=== PATIENT | female | born 1950 | race American Indian/Alaskan Native ===

== ENCOUNTER 2020-10-29 03:54 | Inpatient (IN) | payer MEDICARE ==
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
[2020-10-29] MEDS ORDERED: MIDAZOLAM 5 MG/5 ML INJ MDV IV ONE (04:02)
[2020-10-29] MEDS ORDERED: TETANUS,DIPH,PERTUSS(ACELL) VACCINE 0.5 ML SYRINGE IM ONE (04:04)
[2020-10-29 05:14] LABS: Basophils # (Auto) 0.1 K/mm3 (0.0-0.1); Basophils % (Auto) 0.7 % (0.0-1.8); Eosinophils # (Auto) 0.2 K/mm3 (0.0-0.4); Eosinophils % (Auto) 2.5 % (0.0-4.3); Hematocrit 37.1 % (30.3-42.9); Hemoglobin 12.6 gm/dl (10.1-14.3); Lymphocytes # (Auto) 2.1 K/mm3 (1.2-5.4); Lymphocytes % (Auto) 21.8 % (13.4-35.0); Mean Corpuscular HGB Conc 34 % (30-34); Mean Corpuscular Volume 95 fl (79-97); Monocytes # (Auto) 1.2 K/mm3 (0.0-0.8); Platelet Count 295 K/mm3 (140-440); Red Blood Count 3.92 M/mm3 (3.65-5.03); Red Cell Distribution Width 15.1 % (13.2-15.2)
--- NOTE | 2020-10-29 05:22 | XRay Report ---
Left elbow 2 views INDICATION: Pain FINDINGS: Alignment appears normal. No joint effusion is definitely seen. No acute fracture. Signer Name: Jorge Rivers MD Signed: 10/29/2020 5:18 AM Workstation Name: [id number]
--- NOTE | 2020-10-29 05:22 | XRay Report ---
CHEST 1 VIEW 10/29/2020 4:15 AM INDICATION / CLINICAL INFORMATION: dyspnea congestion. COMPARISON: None available. FINDINGS: SUPPORT DEVICES: None. HEART / MEDIASTINUM: No significant abnormality. LUNGS / PLEURA: No significant pulmonary or pleural abnormality. No pneumothorax. ADDITIONAL FINDINGS: No significant additional findings. IMPRESSION: 1. No acute findings. Signer Name: Jorge Rivers MD Signed: 10/29/2020 5:18 AM Workstation Name: [id number]
[2020-10-29] MEDS ORDERED: HALOPERIDOL LACTATE 5 MG/1 ML INJ IM STA (05:30)
[2020-10-29 05:31] LABS: Alanine Aminotransferase 31 units/L (7-56); Albumin 4.1 g/dL (3.9-5); BUN/Creatinine Ratio 16; Blood Urea Nitrogen 16 mg/dL (7-17); Calcium 9.3 mg/dL (8.4-10.2); Hemolysis Index 63
[2020-10-29] MEDS ORDERED: SODIUM CHLORIDE 0.9% 500 ML 500 ML IV ONE (05:32)
[2020-10-29] MEDS ORDERED: MAGNESIUM SULFATE 2 GM/50 ML BAG IV ONE (05:53)
[2020-10-29] MEDS ORDERED: LORazepam 2 MG/ML VIAL IV ONE (07:08)
[2020-10-29] MEDS: ZIPRASIDONE MESYLATE 20 MG VIAL IM PRN ×2 (08:38→10:15)
--- NOTE | 2020-10-29 11:17 | Cat Scan Report ---
NONENHANCED CT SCAN OF THE HEAD: INDICATION / CLINICAL INFORMATION: 70 years Female; Patient fell with trauma to her head. TECHNIQUE: Routine CT head without contrast. All CT scans at this location are performed using CT dos e reduction for ALARA by means of automated exposure control. COMPARISON: CT scan of the head from 02/10/2020 FINDINGS: BRAIN / INTRACRANIAL CONTENTS: No intracranial sequela from the trauma; no scalp hematoma; no fluid l evel in the visualized portions of the paranasal sinuses. No acute hemorrhage, mass effect, midline shift, hydrocephalus, or acute, large territorial infarct. No chronic infarct or focal atrophy. Confluent periventricular and deep hemispheric white matter low attenuation areas seen probably due to chronic small vessel disease. CRANIOCERVICAL JUNCTION: No significant abnormality. ORBITS: No significant abnormality of visualized orbits. SINUSES / MASTOIDS: No significant abnormality of the visualized paranasal sinuses or mastoid air isabelle ls. ADDITIONAL FINDINGS: None. IMPRESSION: No intracranial sequela from the trauma; no acute focal parenchymal lesion Signer Name: Byron Mccain MD Signed: 10/29/2020 11:13 AM Workstation Name: [email or web address] [email or web address]
--- NOTE | 2020-10-29 11:27 | Cat Scan Report ---
CTA CHEST WITH CONTRAST INDICATION / CLINICAL INFORMATION: Patient complains of "Generalized" abdominal pain 100 ml omni 350 . TECHNIQUE: Axial CT images were obtained through the chest after injection of IV contrast. 3 plane TX P and/or 3D reconstructions were produced. All CT scans at this location are performed using CT dose reduction for ALARA by means of automated exposure control. COMPARISON: CTA from 09/04/2020. FINDINGS: Thoracic aorta is normal in caliber. No dissection. No central or segmental pulmonary embolus. Mild c ardiac enlargement without pericardial effusion. Right chest wall port terminates at the cavoatrial j unction. No adenopathy. Scattered volume loss. No focal infiltrate. No pleural effusion or pneumothor ax. No acute osseous findings. Extensive thoracic hardware is unchanged. IMPRESSION: No acute findings in the chest. No evidence of pulmonary embolus. CT abdomen pelvis w con INDICATION / CLINICAL INFORMATION: Patient complains of "Generalized" abdominal pain 100 ml omni 350 . TECHNIQUE: Axial CT images were obtained through the abdomen and pelvis after IV contrast. All CT sc ans at this location are performed using CT dose reduction for ALARA by means of automated exposure c ontrol. COMPARISON: 09/02/2020. FINDINGS: Cholecystomy with reservoir phenomenon of the biliary tree. Liver, pancreas, spleen, adrenals, kidney s and bladder demonstrate no acute abnormality. Hysterectomy. Stomach is unremarkable. Small bowel and colon demonstrate no evidence of mechanical obstruction or i nflammation. The appendix is not seen. There is no free fluid or lymphadenopathy. IVC filter is again seen within the infrarenal IVC, unchanged. Chronic and extensive postoperative changes of the lumbar spine and pelvis are similar. No acute osseous finding. IMPRESSION: No acute abnormality of the abdomen or pelvis. Signer Name: Sammy Wall MD Signed: 10/29/2020 11:23 AM Workstation Name: [email or web address]
[2020-10-29] MEDS ORDERED: SODIUM CHLORIDE 0.9% 1000 ML 1,000 ML IV ONE (11:42)
--- NOTE | 2020-10-29 11:53 | History and Physical Report ---
History of Present Illness Chief complaint: She is confused History of present illness: 70 YO Female with Vascular Dementia with Behavioral Disturbance, Cerebral Atherosclerosis, COPD, DM, Paroxysmal Atrial Fib not on therapeutic anticoagulation, Diastolic CHF, BrCA, GERD, HTN, Scoliosis presents to ED for evaluation. Patient is confused with diminished cognition and is unable to provide history. Patient history taken from EMS staff, ED staff, as well as patient previous medical record. As per staff and unknown individual notified EMS this morning for patient confusion. Upon arrival the patient was found to be in distress and subsequently transported to [facility] for further care and evaluation of the aforementioned symptoms. The patient was seen and evaluated in the emergency department. All lab and imaging studies reviewed. The patient is currently bedbound, nonambulatory and requires 6/6 assistance with activities of daily living. Patient has a palliative performance score 30%. Patient is unable to make needs known or follow simple commands. Patient found to have metabolic encephalopathy, metabolic acidosis, tachycardia not otherwise specified. Patient placed in observation status and admitted to medical floor due to increased risk of worsening symptoms. Patient treated with IV fluid resuscitation therapy, supportive care. Patient is confused and lethargic but has a positive gag reflex and is able to protect her airway without difficulty. No further history is obtainable. Advanced care planning conducted in ED. Case management consulted in ED. Past History Past Medical History: atrial fib, cancer, COPD, diabetes, GERD, heart failure, hypertension Past Surgical History: No surgical history, Other (Reviewed) Social history: single. denies: smoking, alcohol abuse Family history: diabetes, hypertension Medications and Allergies Allergies Allergy/AdvReac Type Severity Reaction Status Date / Time No Known Allergies Allergy Verified 10/29/20 04:34 Active Meds: Active Medications Sodium Chloride (Nacl 0.9% 1000 Ml) 1,000 mls @ 999 mls/hr IV BOLUS ONE Stop: 10/29/20 12:42 Ziprasidone (Ziprasidone Mesylate 20 Mg Vial) 10 mg IM Q2H PRN PRN Reason: Agitation Last Admin: 10/29/20 10:15 Dose: 10 mg Documented by: Review of Systems ROS unobtainable: due to mental status Exam - Constitutional Vitals: Temp Pulse Resp BP Pulse Ox 97.9 F 133 H 13 145/64 92 10/29/20 04:28 10/29/20 04:28 10/29/20 04:28 10/29/20 04:28 10/29/20 04:28 General appearance: Present: mild distress, cachectic, disheveled - EENT Eyes: Present: PERRL ENT: clear oral mucosa, hearing decreased - Neck Neck: Present: supple, normal ROM - Respiratory Respiratory: bilateral: CTA - Cardiovascular Rhythm: irregularly irregular - Extremities Extremities: pulses symmetrical, No edema Peripheral Pulses: within normal limits - Abdominal General gastrointestinal: Present: soft, non-tender, non-distended, normal bowel sounds Female genitourinary: Present: normal - Integumentary Integumentary: Present: clear, dry - Musculoskeletal Musculoskeletal: generalized weakness - Psychiatric Psychiatric: no appropriate mood/affect, no intact judgment & insight, no memory intact - Neurologic Neurologic: CNII-XII intact, no focal deficits, moves all extremities, no gait normal HEART Score - HEART Score Troponin: Troponin T 0.018 ng/mL (0.00-0.029) 10/29/20 04:25 Results - Labs CBC & Chem 7: 10/29/20 04:25 10/29/20 04:25 Labs: Abnormal lab results 10/29/20 10/29/20 10/29/20 Range/Units 04:25 04:25 04:25 [place] % (Auto) 13.0 H (0.0-7.3) % [place] # (Auto) 1.2 H (0.0-0.8) K/mm3 D-Dimer (0-234) ng/mlDDU Chloride 94.4 L (98-107) mmol/L Glucose 219 H (65-100) mg/dL Lactic Acid (0.7-2.0) mmol/L Magnesium 1.20 L (1.7-2.3) mg/dL Alkaline Phosphatase 138 H (35-129) units/L Total Creatine Kinase 454 H (30-135) units/L Total Protein 6.2 L (6.3-8.2) g/dL Salicylates < 0.3 L (2.8-20.0) mg/dL Acetaminophen (10.0-30.0) ug/mL 10/29/20 10/29/20 10/29/20 Range/Units 04:25 05:41 05:41 [place] % (Auto) (0.0-7.3) % [place] # (Auto) (0.0-0.8) K/mm3 D-Dimer 1275.25 H (0-234) ng/mlDDU Chloride (98-107) mmol/L Glucose (65-100) mg/dL Lactic Acid 2.70 H* (0.7-2.0) mmol/L Magnesium (1.7-2.3) mg/dL Alkaline Phosphatase (35-129) units/L Total Creatine Kinase (30-135) units/L Total Protein (6.3-8.2) g/dL Salicylates (2.8-20.0) mg/dL Acetaminophen < 5.0 L (10.0-30.0) ug/mL Assessment and Plan - Patient Problems (1) Metabolic encephalopathy Current Visit: Yes Status: Acute Plan to address problem: CT head, neuro check, seizure precautions, aspiration precautions, fall precautions, IV fluid resuscitation therapy (2) Metabolic acidosis Current Visit: Yes Status: Acute Plan to address problem: BMP, IV fluid resuscitation therapy, repeat BMP in a.m. (3) Vascular dementia with behavioral disturbance Current Visit: Yes Status: Acute Plan to address problem: Verbal prompting, verbal redirection, benzodiazepine therapy as clinically indicated. (4) Cerebral atherosclerosis Current Visit: Yes Status: Acute Plan to address problem: Risk factor reduction, supportive care, antiplatelet therapy as clinically indicated. (5) Hypertension Current Visit: Yes Status: Acute Qualifiers: Hypertension type: essential hypertension Qualified Code(s): I10 - Essential (primary) hypertension Plan to address problem: Monitor blood pressure every shift, continue medical management (6) GERD (gastroesophageal reflux disease) Current Visit: Yes Status: Acute Qualifiers: Esophagitis bleeding: without hemorrhage Plan to address problem: PPI therapy, supportive care. (7) Atrial fibrillation Current Visit: Yes Status: Acute Qualifiers: Atrial fibrillation type: longstanding persistent Qualified Code(s): I48.11 - Longstanding persistent atrial fibrillation Plan to address problem: Supportive care, rate control, patient currently not taking therapeutic anticoagulation, (8) DVT prophylaxis Current Visit: Yes Status: Acute Plan to address problem: SCD to bilateral lower extremities while in bed (9) Advance care planning Current Visit: Yes Status: Acute Plan to address problem: Patient son Graeme Rawls is not available to discuss patient care patient phone number is as follows: [phone]. [phone] minutes.
[2020-10-29] MEDS ORDERED: ALBUTEROL 2.5 MG/3 ML NEBU IH PRN (13:00)
[2020-10-29] MEDS ORDERED: ONDANSETRON 4 MG/2 ML INJ IV PRN (14:00)
--- NOTE | 2020-10-29 14:25 | Electrocardiograph Report ---
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
[2020-10-29 15:24] LABS: Bilirubin,Urine NEG (Negative); Blood,Urine NEG (Negative); Color,Urine Yellow (Yellow); Hyaline Casts,Urine 1 /LPF; Protein,Urine <15 mg/dL mg/dL (Negative); Urobilinogen,Urine < 2.0 mg/dL (<2.0)
[2020-10-29] MEDS: SODIUM CHLORIDE 0.9% 1000 ML 1,000 ML IV SCH ×2 (19:02→22:29)
[2020-10-29] MEDS: METOPROLOL SUCCINATE XL 50 MG TAB PO SCH (22:29)
[2020-10-29] MEDS: LORazepam 2 MG/ML VIAL IV PRN (23:41)
[2020-10-30] MEDS ORDERED: METOPROLOL TARTRATE 5 MG/5 ML INJ IV ONE (00:05)
[2020-10-30] MEDS ORDERED: LEVALBUTEROL 1.25 MG/3 ML NEB IH ONE (00:07)
[2020-10-30] MEDS ORDERED: methylPREDNISolone Sod Succinate 125 MG/2 ML INJ ONE (00:19)
[2020-10-30] MEDS ORDERED: methylPREDNISolone Sod Succinate 125 MG/2 ML INJ IV ONE (00:23)
[2020-10-30] MEDS: ENOXAPARIN 40 MG/0.4 ML INJ SUB-Q SCH ×2 (00:35→23:13)
--- NOTE | 2020-10-30 01:07 | Event Note ---
Date: 10/30/20 Rapid response called at approximately 0020 for respiratory distress concerned. Patient was tachypneic with respiratory rate in mid to high 30s, saturation of 96% on 3 L nasal cannula, telemetry monitoring showed atrial fibrillation with heart rate ranging from 1 20-140s. Stat EKG confirmed atrial fibrillation, patient has history of paroxysmal atrial fibrillation and is rate controlled on metoprolol. IV metoprolol 2.5 mg given, and patient was responsive with heart rate 110-118; stat ABG 7.399/41.99/82.3/25.3; given patient's history of COPD and on auscultation prolonged expiratory phase IV Solu-Medrol 125 mg given, neb treatment ordered, and will place on nocturnal use of BiPAP.
[2020-10-30 02:10] LABS: C-Reactive Protein 10.1 mg/dL (0.00-1.30)
[2020-10-30] MEDS: LORazepam 2 MG/ML VIAL IV PRN ×3 (07:27→19:32)
[2020-10-30] MEDS: IPRATROPIUM/ALBUTEROL SULFATE 3 ML AMPUL.NEB IH SCH ×2 (07:34→14:32)
[2020-10-30 08:15] LABS: Blood Urea Nitrogen 12 mg/dL (7-17); Calcium 8.1 mg/dL (8.4-10.2); Hemolysis Index 20
[2020-10-30 08:23] LABS: BUN/Creatinine Ratio 20
--- NOTE | 2020-10-30 09:31 | Progress Note ---
Assessment and Plan Assessment and plan: --h/o Paroxysmal atrial fibrillation with rapid ventricular rate Current Visit: Yes Status: Acute On metoprolol , patient not on anticoagulation Supportive care Cardiology consult --Acute metabolic encephalopathy Current Visit: Yes Status: Acute Multifactorial , dementia .metabolic acidosis .A. fib Treat the underlying cause, will find out from family her baseline status. CT head, no acute abnormality noted --History of fall; Current Visit: Yes Status: Acute. Fall precautions, physical therapy occupational therapy Possible placement when stable --Hyperglycemia/type 2 diabetes mellitus Accu-Chek sliding scale coverage ADA diet Long-acting insulin as needed, check A1c --Metabolic acidosis Current Visit: Yes Status: Acute BMP, IV fluid resuscitation therapy, repeat BMP in a.m. --Vascular dementia with behavioral disturbance Current Visit: Yes Status: Acute Verbal prompting, verbal redirection, benzodiazepine therapy as clinically indicated. -- Hypertension Current Visit: Yes Status: Acute Monitor blood pressure every shift, continue medical management --GERD (gastroesophageal reflux disease) Current Visit: Yes Status: Acute PPI therapy, supportive care. --Multiple decubiti and wounds of different stages Current Visit: Yes Status: Acute Wound and supportive care --DVT prophylaxis Current Visit: Yes Status: Acute SCD to bilateral lower extremities while in bed --discharge planning Current Visit: Yes Status: Acute . Possible placement at discharge --Advance care planning Current Visit: Yes Status: Acute Continue current management I called [place] physician Dr.Del Ott at [phone] and discussed in detail patient's condition, tests and reports, treatment plan, family's request for placement, Consultants recommendations. I answered all her questions, and Dr. Zhang will fax patient's current medication list to the nurses station. History Interval history: I have seen and examined the patient at the bedside Patient's chart and medications reviewed patient was admitted with altered level of consciousness Went into acute respiratory failure requiring BiPAP As well as had an episode of A. fib with rapid ventricular rate Patient is in sinus today On BiPAP noncommunicative Vital signs noted Hospitalist Physical - Constitutional Vitals: Temp Pulse Resp BP Pulse Ox 98.3 F 96 H 20 118/68 100 10/30/20 04:33 10/30/20 07:45 10/30/20 07:45 10/30/20 04:33 10/30/20 07:49 General appearance: Present: mild distress, cachectic, disheveled - EENT Eyes: Present: PERRL, EOM intact - Neck Neck: Present: supple, normal ROM - Respiratory Respiratory effort: normal Respiratory: bilateral: diminished, negative: rales, rhonchi, wheezing - Cardiovascular Rhythm: regular Heart Sounds: Present: S1 & S2 - Extremities Extremities: no ischemia, No edema - Abdominal General gastrointestinal: soft, non-tender, non-distended, normal bowel sounds - Integumentary Integumentary: Present: clear, warm - Psychiatric Psychiatric: other (Confused) - Neurologic Neurologic: moves all extremities HEART Score - HEART Score Troponin: Troponin T 0.018 ng/mL (0.00-0.029) 10/29/20 04:25 Results - Labs CBC & Chem 7: 10/29/20 04:25 10/30/20 07:09 Labs: Laboratory Last Values WBC 9.4 K/mm3 (4.5-11.0) 10/29/20 04:25 RBC 3.92 M/mm3 (3.65-5.03) 10/29/20 04:25 Hgb 12.6 gm/dl (10.1-14.3) 10/29/20 04:25 Hct 37.1 % (30.3-42.9) 10/29/20 04:25 MCV 95 fl (79-97) 10/29/20 04:25 MCH 32 pg (28-32) 10/29/20 04:25 MCHC 34 % (30-34) 10/29/20 04:25 RDW 15.1 % (13.2-15.2) 10/29/20 04:25 Plt Count 295 K/mm3 (140-440) 10/29/20 04:25 Lymph % (Auto) 21.8 % (13.4-35.0) 10/29/20 04:25 [place] % (Auto) 13.0 % (0.0-7.3) H 10/29/20 04:25 Eos % (Auto) 2.5 % (0.0-4.3) 10/29/20 04:25 Baso % (Auto) 0.7 % (0.0-1.8) 10/29/20 04:25 Lymph # (Auto) 2.1 K/mm3 (1.2-5.4) 10/29/20 04:25 [place] # (Auto) 1.2 K/mm3 (0.0-0.8) H 10/29/20 04:25 Eos # (Auto) 0.2 K/mm3 (0.0-0.4) 10/29/20 04:25 Baso # (Auto) 0.1 K/mm3 (0.0-0.1) 10/29/20 04:25 Seg Neutrophils % 62.0 % (40.0-70.0) 10/29/20 04:25 Seg Neutrophils # 5.9 K/mm3 (1.8-7.7) 10/29/20 04:25 D-Dimer 1275.25 ng/mlDDU (0-234) H 10/29/20 05:41 ABG pH 7.399 (7.320-7.450) 10/30/20 00:24 POC ABG pCO2 41.8 mmHg (32.0-48.0) 10/30/20 00:24 POC ABG pO2 82.3 mmHg (83-108) L 10/30/20 00:24 POC ABG HCO3 25.3 10/30/20 00:24 ABG O2 Saturation 96.2 (0-100) 10/30/20 00:24 POC ABG Base Excess 0.4 10/30/20 00:24 ABG Hemoglobin 11.2 (12.0-17.5) L 10/30/20 00:24 ABG Oxyhemoglobin 95.6 (94-98) 10/30/20 00:24 ABG Methemoglobin 0.3 (0.0-1.5) 10/30/20 00:24 ABG Sodium 133.5 mmol/L (136.0-145.0) L 10/30/20 00:24 ABG Potassium 3.1 mmol/L (3.40-4.50) L 10/30/20 00:24 ABG Chloride 99.0 mmol/L (98-107) 10/30/20 00:24 ABG Glucose 179 mg/dL (65-95) H 10/30/20 00:24 Carboxyhemoglobin 0.3 (0.5-1.5) L 10/30/20 00:24 FiO2 % 32.0 10/30/20 00:24 Sodium 139 mmol/L (137-145) 10/30/20 07:09 Potassium 3.6 mmol/L (3.6-5.0) 10/30/20 07:09 Chloride 99.0 mmol/L (98-107) 10/30/20 07:09 Carbon Dioxide 24 mmol/L (22-30) 10/30/20 07:09 Anion Gap 20 mmol/L 10/30/20 07:09 BUN 12 mg/dL (7-17) 10/30/20 07:09 Creatinine 0.6 mg/dL (0.6-1.2) 10/30/20 07:09 Estimated GFR > 60 ml/min 10/30/20 07:09 BUN/Creatinine Ratio 20 % 10/30/20 07:09 Glucose 241 mg/dL (65-100) H 10/30/20 07:09 POC Glucose 249 mg/dL (70-105) H 10/30/20 07:46 Lactic Acid 1.70 mmol/L (0.7-2.0) 10/29/20 10:16 Calcium 8.1 mg/dL (8.4-10.2) L 10/30/20 07:09 Magnesium 1.20 mg/dL (1.7-2.3) L 10/29/20 04:25 Ferritin 466.2 ng/mL (10.0-200.0) H 10/30/20 01:19 Total Bilirubin 1.00 mg/dL (0.1-1.2) 10/29/20 04:25 AST 35 units/L (5-40) 10/29/20 04:25 ALT 31 units/L (7-56) 10/29/20 04:25 Alkaline Phosphatase 138 units/L (35-129) H 10/29/20 04:25 Lactate Dehydrogenase 540 units/L (91-180) H 10/30/20 01:19 Total Creatine Kinase 454 units/L (30-135) H 10/29/20 04:25 Troponin T 0.018 ng/mL (0.00-0.029) 10/29/20 04:25 C-Reactive Protein 10.10 mg/dL (0.00-1.30) H 10/30/20 01:19 NT-Pro-B Natriuret Pep 231.7 pg/mL (0-900) 10/29/20 04:25 Total Protein 6.2 g/dL (6.3-8.2) L 10/29/20 04:25 Albumin 4.1 g/dL (3.9-5) 10/29/20 04:25 Albumin/Globulin Ratio 2.0 % 10/29/20 04:25 Procalcitonin 0.72 ng/mL (<0.15) 10/30/20 01:19 TSH 2.290 mlU/mL (0.270-4.200) 10/29/20 04:25 Arterial Blood Glucose 179 mg/dL (65-95) H 10/30/20 00:24 Arterial Blood Ionized Calcium 4.3 mg/dL (4.6-5.3) L 10/30/20 00:24 Urine Color Yellow (Yellow) 10/29/20 14:53 Urine Turbidity Clear (Clear) 10/29/20 14:53 Urine pH 5.0 (5.0-7.0) 10/29/20 14:53 Ur Specific [place] 1.019 (1.003-1.030) 10/29/20 14:53 Urine Protein <15 mg/dl mg/dL (Negative) 10/29/20 14:53 Urine Glucose (UA) 150 mg/dL (Negative) 10/29/20 14:53 Urine Ketones Neg mg/dL (Negative) 10/29/20 14:53 Urine Blood Neg (Negative) 10/29/20 14:53 Urine Nitrite Neg (Negative) 10/29/20 14:53 Urine Bilirubin Neg (Negative) 10/29/20 14:53 Urine Urobilinogen < 2.0 mg/dL (<2.0) 10/29/20 14:53 Ur Leukocyte Esterase Neg (Negative) 10/29/20 14:53 Urine WBC (Auto) 1.0 /HPF (0.0-6.0) 10/29/20 14:53 Urine RBC (Auto) 1.0 /HPF (0.0-6.0) 10/29/20 14:53 Hyaline Casts 1 /LPF 10/29/20 14:53 Salicylates < 0.3 mg/dL (2.8-20.0) L 10/29/20 04:25 Acetaminophen < 5.0 ug/mL (10.0-30.0) L 10/29/20 04:25 Plasma/Serum Alcohol < 0.01 % (0-0.07) 10/29/20 04:25 [place]/IV: Voiding Method Incontinent Active Medications - Current Medications Current Medications: Generic Name Dose Route Start Last Admin Trade Name Freq PRN Reason Stop Dose Admin Acetaminophen 650 mg 10/29/20 13:00 Acetaminophen 325 Mg Tab PO Q4H PRN Pain MILD(1-3)/Fever >100.5/HOFFMAN Albuterol 2.5 mg 10/29/20 13:00 Albuterol 2.5 Mg/3 Ml Nebu IH Q4HRT PRN Shortness Of Breath Albuterol/Ipratropium 1 ampul 10/30/20 08:00 10/30/20 07:34 Ipratropium/Albuterol Sulfate 3 Ml Ampul.Neb IH 1 ampul TIDRT AGUEDA Administration Enoxaparin Sodium 40 mg 10/30/20 00:30 10/30/20 00:35 Enoxaparin 40 Mg/0.4 Ml Inj SUB-Q 40 mg QDAY@2200 AGUEDA Administration Protocol Sodium Chloride 1,000 mls @ 75 mls/hr 10/29/20 13:00 10/29/20 22:29 Nacl 0.9% 1000 Ml IV Infused DIRECT AGUEDA Infusion Lorazepam 1 mg 10/29/20 12:37 10/30/20 07:27 Lorazepam 2 Mg/Ml Vial IV 1 mg Q4H PRN Administration Agitation Metoprolol Succinate 50 mg 10/29/20 22:00 10/29/20 22:29 Metoprolol Succinate Xl 50 Mg Tab PO 50 mg QDAY AGUEDA Administration Ondansetron HCl 4 mg 10/29/20 14:00 Ondansetron 4 Mg/2 Ml Inj IV Q8H PRN Nausea And Vomiting Sodium Chloride 10 ml 10/29/20 22:00 10/29/20 22:30 Sodium Chloride 0.9% 10 Ml Flush Syringe IV 10 ml BID AGUEDA Administration Sodium Chloride 10 ml 10/29/20 13:00 10/29/20 23:41 Sodium Chloride 0.9% 10 Ml Flush Syringe IV 10 ml PRN PRN Administration LINE FLUSH Ziprasidone 10 mg 10/29/20 08:23 10/29/20 10:15 Ziprasidone Mesylate 20 Mg Vial IM 10 mg Q2H PRN Administration Agitation
--- NOTE | 2020-10-30 10:58 | Consultation ---
History of Present Illness Consult date: 10/30/20 Consult reason: atrial fibrillation History of present illness: This is a 70-year old woman who was brought in with complaints of abdominal pain. CT scan of the abdomen reports no acute findings. Overnight, she developed respiratory failure and was placed on Bipap therapy. CTA of the chest shows no evidence of pulmonary embolism. History is unobtainable due to underlying Dementia. Records reviewed reports she has a cardiac history of paroxysmal atrial fibrillation which is followed by [place]. Home medications lists she takes Pradaxa for oral anticoagulation. An ECG done on presentation shows sinus tachycardia with occasional PACs. 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 A cardiac consultation has been requested for history of paroxysmal atrial fibrillation. Past History Past Medical History: atrial fib, cancer, COPD, diabetes, GERD, heart failure, hypertension Past Surgical History: No surgical history Social history: single. denies: smoking, alcohol abuse Family history: diabetes, hypertension Medications and Allergies Allergies Allergy/AdvReac Type Severity Reaction Status Date / Time No Known Allergies Allergy Verified 10/29/20 04:34 Home Medications Medication Instructions Recorded Confirmed Last Taken Type AtorvaSTATin [Lipitor] 40 mg PO QHS 10/29/20 10/29/20 Unknown History Dabigatran [Pradaxa] 150 mg PO BID 10/29/20 10/29/20 Unknown History Duloxetine HCl 60 mg PO QDAY 10/29/20 10/29/20 Unknown History Hydroxychloroquine [Plaquenil] 200 mg PO QDAY 10/29/20 10/29/20 Unknown History Insulin NPH Human Isophane 0 units SQ ACHS 10/29/20 10/29/20 Unknown History [Humulin N] Metoprolol Xl [Metoprolol 50 mg PO QDAY 10/29/20 10/29/20 Unknown History SUCCINATE ER TAB] Mirtazapine [Remeron 15mg TAB] 15 mg PO QHS 10/29/20 10/29/20 Unknown History Montelukast [Singulair] 10 mg PO QPM 10/29/20 10/29/20 Unknown History Pregabalin [Lyrica] 25 mg PO QDAY 10/29/20 10/29/20 Unknown History Tiotropium Br/Olodaterol HCl 2 puff INHALATION DAILY 10/29/20 10/29/20 Unknown History [Stiolto Respimat Inhal [place]] diazePAM [Diazepam] 10 mg PO QHS 10/29/20 10/29/20 Unknown History Active Meds: Active Medications Acetaminophen (Acetaminophen 325 Mg Tab) 650 mg PO Q4H PRN PRN Reason: Pain MILD(1-3)/Fever >100.5/[place]OFFMAN Albuterol (Albuterol 2.5 Mg/3 Ml Nebu) 2.5 mg IH Q4HRT PRN PRN Reason: Shortness Of Breath Albuterol/Ipratropium (Ipratropium/Albuterol Sulfate 3 Ml Ampul.Neb) 1 ampul IH TIDRT [facility] Last Admin: 10/30/20 07:34 Dose: 1 ampul Documented by: Enoxaparin Sodium (Enoxaparin 40 Mg/0.4 Ml Inj) 40 mg SUB-Q QDAY@2200 [facility]; Protocol Last Admin: 10/30/20 00:35 Dose: 40 mg Documented by: Sodium Chloride (Nacl 0.9% 1000 Ml) 1,000 mls @ 75 mls/hr IV DIRECT [facility] Last Infusion: 10/29/20 22:29 Dose: Infused Documented by: Lorazepam (Lorazepam 2 Mg/Ml Vial) 1 mg IV Q4H PRN PRN Reason: Agitation Last Admin: 10/30/20 07:27 Dose: 1 mg Documented by: Metoprolol Succinate (Metoprolol Succinate Xl 50 Mg Tab) 50 mg PO QDAY [facility] Last Admin: 10/29/20 22:29 Dose: 50 mg Documented by: Ondansetron HCl (Ondansetron 4 Mg/2 Ml Inj) 4 mg IV Q8H PRN PRN Reason: Nausea And Vomiting Sodium Chloride (Sodium Chloride 0.9% 10 Ml Flush Syringe) 10 ml IV BID [facility] Last Admin: 10/30/20 10:20 Dose: Not Given Documented by: Sodium Chloride (Sodium Chloride 0.9% 10 Ml Flush Syringe) 10 ml IV PRN PRN PRN Reason: LINE FLUSH Last Admin: 10/29/20 23:41 Dose: 10 ml Documented by: Ziprasidone (Ziprasidone Mesylate 20 Mg Vial) 10 mg IM Q2H PRN PRN Reason: Agitation Last Admin: 10/29/20 10:15 Dose: 10 mg Documented by: Review of Systems ROS unobtainable: due to mental status Physical Examination Vital Signs Pulse Ox 100 10/29/20 04:18 General appearance: other (on Bipap therapy) Cardiac: Positive: Reg Rate and Rhythm Results 10/29/20 04:25 10/30/20 07:09 Cardiac Enzymes 10/30/20 Range/Units 01:19 Lactate Dehydrogenase 540 H (91-180) units/L Comprehensive Metabolic Panel 10/30/20 10/30/20 Range/Units 01:19 07:09 Sodium 139 (137-145) mmol/L Potassium 3.6 (3.6-5.0) mmol/L Chloride 99.0 (98-107) mmol/L Carbon Dioxide 24 (22-30) mmol/L BUN 12 (7-17) mg/dL Creatinine 0.6 (0.6-1.2) mg/dL Glucose 187 H 241 H (65-100) mg/dL Calcium 8.1 L (8.4-10.2) mg/dL Assessment and Plan - Patient Problems (1) Atrial fibrillation Current Visit: Yes Status: Acute Qualifiers: Qualified Code(s): I48.11 - Longstanding persistent atrial fibrillation Plan to address problem: Hx of paroxysmal atrial fibrillation on Pradaxa as an outpatient for oral AC. on Toprol XL for suppression. Continue medical therapy for paroxysmal atrial fibrillation. Otherwise, conservative cardiac management.
[2020-10-30] MEDS: METOPROLOL SUCCINATE XL 50 MG TAB PO SCH (12:18)
--- NOTE | 2020-10-30 15:17 | Event Note ---
Date: 10/30/20 I called [place] physician Dr.Del Ott at [phone] and discussed in detail patient's condition, tests and reports, treatment plan, family's request for placement, Consultants recommendations. I answered all her questions, and Dr. Zhang will fax patient's current medication list to the nurses station.
--- NOTE | 2020-10-30 18:10 | Electrocardiograph Report ---
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
[2020-10-31] MEDS: INSULIN LISPRO 100 UNIT/ML SUB-Q SCH ×5 (00:13→22:27)
[2020-10-31] MEDS: IPRATROPIUM/ALBUTEROL SULFATE 3 ML AMPUL.NEB IH SCH ×4 (09:22→20:18)
--- NOTE | 2020-10-31 10:39 | Progress Note ---
Assessment and Plan Respiratory failure Sinus tachycardia related to respiratory failure Hx of paroxysmal atrial fibrillation on Pradaxa as an outpatient for oral AC. on Toprol XL for suppression. Htn DM II Vascular dementia Recommend: Continue medical therapy for paroxysmal atrial fibrillation. Otherwise, conservative cardiac management. Subjective Date of service: 10/31/20 Interval history: No acute events Objective Vital Signs Temp Pulse Pulse Pulse Resp Resp Resp 10/31/20 09:20 120 H 119 H 20 15 10/31/20 05:59 98.1 F 20 10/30/20 23:00 100 H 28 H 10/30/20 22:04 98.4 F 120 H 20 10/30/20 15:32 99.1 F 115 H 36 H 10/30/20 14:38 102 H 26 H 10/30/20 14:37 99 H 102 H 20 10/30/20 11:42 99.0 F 117 H 36 H BP Pulse Ox 10/31/20 09:20 10/31/20 05:59 126/65 10/30/20 23:00 100 10/30/20 22:04 124/76 98 10/30/20 15:32 135/68 100 10/30/20 14:38 100 10/30/20 14:37 10/30/20 11:42 132/74 100 - Physical Examination Cardiac: Positive: Reg Rate and Rhythm Lungs: Positive: clear to auscultation Abdomen: Positive: Soft, Active Bowel Sounds
--- NOTE | 2020-10-31 11:19 | Progress Note ---
Assessment and Plan Assessment and Plan: -l atrial fibrillation with rapid ventricular rate Current Visit: Yes Status: Acute On metoprolol , patient not on anticoagulation Supportive care Cardiology consult Add Cardizem CD 120 mg daily Heart rate in 130s Cannot discharge her today --Acute metabolic encephalopathy Current Visit: Yes Status: Acute Multifactorial , dementia .metabolic acidosis .A. fib Treat the underlying cause, will find out from family her baseline status. CT head, no acute abnormality noted Improved --History of fall; Current Visit: Yes Status: Acute. Fall precautions, physical therapy occupational therapy Possible placement when stable --Hyperglycemia/type 2 diabetes mellitus Accu-Chek sliding scale coverage ADA diet Long-acting insulin as needed, check A1c --Metabolic acidosis Current Visit: Yes Status: Acute BMP, IV fluid resuscitation therapy, repeat BMP in a.m. --Vascular dementia with behavioral disturbance Current Visit: Yes Status: Acute Verbal prompting, verbal redirection, benzodiazepine therapy as clinically indicated. -- Hypertension Current Visit: Yes Status: Acute Monitor blood pressure every shift, continue medical management --GERD (gastroesophageal reflux disease) Current Visit: Yes Status: Acute PPI therapy, supportive care. --Multiple decubiti and wounds of different stages Current Visit: Yes Status: Acute Wound and supportive care --DVT prophylaxis Current Visit: Yes Status: Acute SCD to bilateral lower extremities while in bed --discharge planning Current Visit: Yes Status: Acute . Possible placement at discharge --Advance care planning Current Visit: Yes Status: Acute Continue current management I called [place] physician Dr.Del Ott at [phone] and discussed in detail patient's condition, tests and reports, treatment plan, family's request for placement, Consultants recommendations. I answered all her questions, and Dr. Zhang will fax patient's current medication list to the nurses station. Subjective Date of service: 10/31/20 Principal diagnosis: A. fib with RVR Interval history: History Interval history: I have seen and examined the patient at the bedside Patient's chart and medications reviewed patient was admitted with altered level of consciousness Went into acute respiratory failure requiring BiPAP As well as had an episode of A. fib with rapid ventricular rate Patient is in sinus today On BiPAP noncommunicative Vital signs noted Objective - Constitutional Vitals: Vital Signs - 12hr 10/30/20 10/31/20 10/31/20 23:00 05:59 09:20 Temperature 98.1 F Pulse Rate 100 H Pulse Rate [ 120 H Anterior Bilateral Throughout] Pulse Rate [ 119 H Posterior Bilateral Throughout] Respiratory 28 H 20 Rate Respiratory 20 Rate [Anterior Bilateral Throughout] Respiratory 15 Rate [Posterior Bilateral Throughout] Blood Pressure 126/65 O2 Sat by Pulse 100 Oximetry - Labs CBC & Chem 7: 10/29/20 04:25 10/30/20 07:09 Labs: Abnormal lab results 10/30/20 10/30/20 10/30/20 Range/Units 12:30 17:08 22:01 POC Glucose 235 H 231 H 206 H (70-105) mg/dL 10/31/20 Range/Units 07:42 POC Glucose 187 H (70-105) mg/dL HEART Score - HEART Score Troponin: Troponin T 0.018 ng/mL (0.00-0.029) 10/29/20 04:25
[2020-10-31] MEDS: dilTIAZem 30 MG TAB PO SCH (18:31)
[2020-10-31] MEDS: METOPROLOL SUCCINATE XL 50 MG TAB PO SCH (18:31)
--- NOTE | 2020-10-31 18:56 | XRay Report ---
ABDOMEN 4 VIEW(S) INDICATION / CLINICAL INFORMATION: dobbhoff placement. COMPARISON: None available. FINDINGS: TUBES / LINES: Dobbhoff tube has tip in body of stomach BOWEL GAS PATTERN: No significant abnormality. FREE AIR / EXTRALUMINAL GAS: None seen. ADDITIONAL FINDINGS: Fusion hardware thoracolumbar spine IMPRESSION: 1. No significant abnormality. IVC Filter Recommendation: IVC filters should be removed if possible when they are no longer clinical ly necessary. (1) Refer to the established IVC filter management plan; (2) If there is no established plan for the patient's IVC filter, consider referral to interventional/vascular clinician on a nonem ergent basis for evaluation. Signer Name: Juarez Tafoya MD Signed: 10/31/2020 6:51 PM Workstation Name: [id number]
[2020-10-31] MEDS: ZIPRASIDONE MESYLATE 20 MG VIAL IM PRN (20:35)
[2020-10-31] MEDS: ENOXAPARIN 40 MG/0.4 ML INJ SUB-Q SCH (21:08)
[2020-11-01] MEDS: dilTIAZem 30 MG TAB PO SCH ×5 (00:28→19:35)
[2020-11-01] MEDS: ZIPRASIDONE MESYLATE 20 MG VIAL IM PRN (05:45)
[2020-11-01] MEDS: IPRATROPIUM/ALBUTEROL SULFATE 3 ML AMPUL.NEB IH SCH ×3 (07:48→21:36)
[2020-11-01] MEDS: INSULIN LISPRO 100 UNIT/ML SUB-Q SCH ×4 (08:57→23:05)
[2020-11-01] MEDS: METOPROLOL SUCCINATE XL 50 MG TAB PO SCH (11:42)
--- NOTE | 2020-11-01 12:20 | Progress Note ---
Assessment and Plan Respiratory failure Sinus tachycardia related to respiratory failure Hx of paroxysmal atrial fibrillation Currently in sinus rhythm Htn DM II Vascular dementia Recommend: Continue current cardiac therapy Subjective Date of service: 11/01/20 Principal diagnosis: A. fib with RVR Interval history: No acute events Objective Vital Signs Temp Pulse Pulse Pulse Pulse Resp Resp 11/01/20 11:44 98.4 F 130 H 24 11/01/20 11:43 130 H 11/01/20 11:42 130 H 11/01/20 07:49 129 H 11/01/20 06:50 119 H 11/01/20 05:26 98.0 F 119 H 18 11/01/20 02:24 107 H 11/01/20 02:00 22 11/01/20 01:47 107 H 31 H 11/01/20 00:28 107 H 10/31/20 22:49 98.5 F 62 20 10/31/20 20:40 100 H 26 H 10/31/20 20:22 10/31/20 20:21 113 H 109 H 24 10/31/20 16:51 98.2 F 136 H 26 H 10/31/20 15:45 124 H 122 H 23 10/31/20 14:00 126 H 20 Resp BP BP Pulse Ox 11/01/20 11:44 139/67 100 11/01/20 11:43 139/67 11/01/20 11:42 139/67 11/01/20 07:49 18 100 11/01/20 06:50 124/71 11/01/20 05:26 124/71 100 11/01/20 02:24 143/76 11/01/20 02:00 99 11/01/20 01:47 100 11/01/20 00:28 143/76 10/31/20 22:49 143/76 90 10/31/20 20:40 100 10/31/20 20:22 100 10/31/20 20:21 26 H 10/31/20 16:51 130/68 100 10/31/20 15:45 22 10/31/20 14:00 99 - Physical Examination Cardiac: Positive: Reg Rate and Rhythm Lungs: Positive: clear to auscultation Abdomen: Positive: Soft, Active Bowel Sounds
--- NOTE | 2020-11-01 14:06 | Progress Note ---
Assessment and Plan Assessment and Plan: -Atrial fibrillation with rapid ventricular rate Current Visit: Yes Status: Acute On metoprolol , patient not on anticoagulation Supportive care Cardiology consult Add Cardizem CD 120 mg daily Heart rate in 130s Cannot discharge her today On VM 50 percent --Acute metabolic encephalopathy Current Visit: Yes Status: Acute Multifactorial , dementia .metabolic acidosis .A. fib Treat the underlying cause, will find out from family her baseline status. CT head, no acute abnormality noted Improved --History of fall; Current Visit: Yes Status: Acute. Fall precautions, physical therapy occupational therapy Possible placement when stable --Hyperglycemia/type 2 diabetes mellitus Accu-Chek sliding scale coverage ADA diet Long-acting insulin as needed, check A1c --Metabolic acidosis Current Visit: Yes Status: Acute BMP, IV fluid resuscitation therapy, repeat BMP in a.m. --Vascular dementia with behavioral disturbance Current Visit: Yes Status: Acute Verbal prompting, verbal redirection, benzodiazepine therapy as clinically i ndicated. -- Hypertension Current Visit: Yes Status: Acute Monitor blood pressure every shift, continue medical management --GERD (gastroesophageal reflux disease) Current Visit: Yes Status: Acute PPI therapy, supportive care. --Multiple decubiti and wounds of different stages Current Visit: Yes Status: Acute Wound and supportive care --DVT prophylaxis Current Visit: Yes Status: Acute SCD to bilateral lower extremities while in bed --Discharge planning Current Visit: Yes Status: Acute . Possible placement at discharge --Advance care planning Current Visit: Yes Status: Acute Continue current management Discussed with [place] physician Updated her condition Placement manager category/general worker working on placement Subjective Date of service: 11/01/20 Principal diagnosis: A. fib with RVR Interval history: History of present illness: 70 YO Female with Vascular Dementia with Behavioral Disturbance, Cerebral Atherosclerosis, COPD, DM, Paroxysmal Atrial Fib not on therapeutic anticoagula tion, Diastolic CHF, BrCA, GERD, HTN, Scoliosis presents to ED for evaluation. Patient is confused with diminished cognition and is unable to provide history. Patient history taken from EMS staff, ED staff, as well as patient previous medical record. As per staff and unknown individual notified EMS this morning for patient confusion. Upon arrival the patient was found to be in distress and subsequently transported to [facility] for further care and evaluation of the aforementioned symptoms. The patient was seen and evaluated in the emergency department. All lab and imaging studies reviewed. The patient is currently bedbound, nonambulatory and requires 6/6 assistance with activities of daily l iving. Patient has a palliative performance score 30%. Patient is unable to make needs known or follow simple commands. Patient found to have metabolic encephalopathy, metabolic acidosis, tachycardia not otherwise specified. Patient placed in observation status and admitted to medical floor due to increased risk of worsening symptoms. Patient treated with IV fluid resuscitation therapy, supportive care. Patient is confused and lethargic but has a positive gag reflex and is able to protect her airway without difficulty. No further history is obtainable. Advanced care planning conducted in ED. Case management consulted in ED. 11/01/20 On VM 50 percent Sinus Tachycardia Updated [place] Physician Objective - Constitutional Vitals: Vital Signs - 12hr 11/01/20 11/01/20 11/01/20 02:24 05:26 06:50 Temperature 98.0 F Pulse Rate 107 H 119 H 119 H Pulse Rate [ Posterior Bilateral Throughout] Respiratory 18 Rate Respiratory Rate [Posterior Bilateral Throughout] Blood Pressure 143/76 124/71 124/71 Blood Pressure [Left] O2 Sat by Pulse 100 Oximetry 11/01/20 11/01/20 11/01/20 07:49 11:42 11:43 Temperature Pulse Rate 130 H 130 H Pulse Rate [ 129 H Posterior Bilateral Throughout] Respiratory Rate Respiratory 18 Rate [Posterior Bilateral Throughout] Blood Pressure 139/67 139/67 Blood Pressure [Left] O2 Sat by Pulse 100 Oximetry 11/01/20 11/01/20 11:44 13:15 Temperature 98.4 F Pulse Rate 130 H Pulse Rate [ 114 H Posterior Bilateral Throughout] Respiratory 24 Rate Respiratory 19 Rate [Posterior Bilateral Throughout] Blood Pressure Blood Pressure 139/67 [Left] O2 Sat by Pulse 100 Oximetry General appearance: Present: no acute distress, well-nourished - EENT Eyes: PERRL, EOM intact ENT: hearing intact, clear oral mucosa Ears: bilateral: normal - Neck Neck: supple, normal ROM - Respiratory Respiratory effort: normal Respiratory: bilateral: CTA - Breasts Breasts: normal - Cardiovascular Heart rate: 130 Rhythm: regular Heart Sounds: Present: S1 & S2. Absent: gallop, rub Extremities: pulses intact, No edema, normal color, Full ROM - Gastrointestinal General gastrointestinal: Present: soft, non-tender, non-distended, normal bowel sounds - Genitourinary Female genitourinary: normal - Integumentary Integumentary: clear, warm, dry - Musculoskeletal Musculoskeletal: 1, strength equal bilaterally - Neurologic Neurologic: moves all extremities - Psychiatric Psychiatric: memory intact, appropriate mood/affect, intact judgment & insight - Allied health notes Allied health notes reviewed: nursing, case management - Labs CBC & Chem 7: 10/29/20 04:25 10/30/20 07:09 Labs: Abnormal lab results 10/31/20 10/31/20 11/01/20 Range/Units 16:54 22:15 07:26 POC Glucose 177 H 157 H 138 H (70-105) mg/dL 11/01/20 Range/Units 11:25 POC Glucose 165 H (70-105) mg/dL HEART Score - HEART Score Troponin: Troponin T 0.018 ng/mL (0.00-0.029) 10/29/20 04:25
[2020-11-01] MEDS: SODIUM CHLORIDE 0.9% 1000 ML 1,000 ML IV SCH (17:20)
[2020-11-01 21:28] LABS: ABG Base Excess 4.4 mmol/L (-2.0-3.0); ABG HCO3 29.2 mmol/L (20.0-26.0); ABG Methemoglobin 0.6 % (0.0-1.5); ABG PCO2 44.5 mm Hg; ABG PH 7.434 pH Units (7.350-7.450); ABG PO2 87.1 mm Hg (80.0-90.0)
[2020-11-01] MEDS: ENOXAPARIN 40 MG/0.4 ML INJ SUB-Q SCH (22:04)
[2020-11-02] MEDS: dilTIAZem 30 MG TAB PO SCH ×4 (01:11→17:31)
[2020-11-02] MEDS: guaiFENesin DM 200/20 MG ORAL LIQD 10 ML PO PRN ×2 (04:27→21:57)
[2020-11-02] MEDS: SODIUM CHLORIDE 0.9% 1000 ML 1,000 ML IV SCH (04:28)
[2020-11-02 07:34] LABS: Basophils # (Auto) 0.1 K/mm3 (0.0-0.1); Basophils % (Auto) 0.8 % (0.0-1.8); Eosinophils # (Auto) 0.2 K/mm3 (0.0-0.4); Eosinophils % (Auto) 1.8 % (0.0-4.3); Hematocrit 29.9 % (30.3-42.9); Hemoglobin 10.2 gm/dl (10.1-14.3); Lymphocytes # (Auto) 1.9 K/mm3 (1.2-5.4); Lymphocytes % (Auto) 18.4 % (13.4-35.0); Mean Corpuscular HGB Conc 34 % (30-34); Mean Corpuscular Volume 95 fl (79-97); Monocytes # (Auto) 1.2 K/mm3 (0.0-0.8); Monocytes % (Auto) 11.6 % (0.0-7.3); Platelet Count 255 K/mm3 (140-440); Red Blood Count 3.17 M/mm3 (3.65-5.03); Red Cell Distribution Width 15.8 % (13.2-15.2)
[2020-11-02 07:48] LABS: Alanine Aminotransferase 13 units/L (7-56); Albumin 2.2 g/dL (3.9-5); Blood Urea Nitrogen 12 mg/dL (7-17); Calcium 7.9 mg/dL (8.4-10.2); Hemolysis Index 12
[2020-11-02 08:27] LABS: BUN/Creatinine Ratio 30
[2020-11-02] MEDS: IPRATROPIUM/ALBUTEROL SULFATE 3 ML AMPUL.NEB IH SCH ×3 (08:30→20:50)
[2020-11-02] MEDS ORDERED: ALBUTEROL 2.5 MG/3 ML NEBU IH PRN (08:43)
[2020-11-02] MEDS ORDERED: FUROSEMIDE 40 MG/4 ML INJ IV NR (08:55)
[2020-11-02] MEDS: METOPROLOL SUCCINATE XL 50 MG TAB PO SCH (09:34)
[2020-11-02] MEDS: INSULIN LISPRO 100 UNIT/ML SUB-Q SCH ×4 (09:34→22:23)
--- NOTE | 2020-11-02 09:40 | Progress Note ---
Assessment and Plan - Patient Problems (1) Shortness of breath Current Visit: Yes Status: Acute Plan to address problem: Patient presented with shortness of breath and COPD exacerbation. Cardiac history of paroxysmal atrial fibrillation, EKG on admission was a sinus tachycardia. We will continue conservative cardiac monitoring, I have ordered an echocardiogram for left ventricular function assessment. Subjective Date of service: 11/02/20 Principal diagnosis: A. fib with RVR Interval history: Patient is on four-point restraints, appears confused, mildly dyspneic. She has required bronchodilator treatments for intermittent bronchospasm and wheezing. Objective Vital Signs Temp Pulse Pulse Resp Resp BP BP 11/02/20 09:29 98.0 F 112 H 22 137/88 11/02/20 08:40 11/02/20 08:30 110 H 20 11/02/20 08:29 11/02/20 04:26 98.7 F 101 H 22 115/79 11/02/20 03:39 11/01/20 21:39 11/01/20 21:38 110 H 19 11/01/20 21:04 98.7 F 117 H 28 H 139/83 11/01/20 20:50 139/83 11/01/20 20:19 18 11/01/20 14:00 20 11/01/20 13:15 114 H 19 11/01/20 11:44 98.4 F 130 H 24 139/67 11/01/20 11:43 130 H 139/67 11/01/20 11:42 130 H 139/67 Pulse Ox 11/02/20 09:29 100 11/02/20 08:40 98 11/02/20 08:30 11/02/20 08:29 98 11/02/20 04:26 100 11/02/20 03:39 100 11/01/20 21:39 100 11/01/20 21:38 11/01/20 21:04 100 11/01/20 20:50 11/01/20 20:19 98 11/01/20 14:00 100 11/01/20 13:15 11/01/20 11:44 100 11/01/20 11:43 11/01/20 11:42 - Physical Examination General: Other (Confused, four-point restraints, mildly dyspneic) HEENT: Positive: PERRL Neck: Positive: neck supple Cardiac: Positive: Regular Rhythm Lungs: Positive: Decreased Breath Sounds Neuro: Positive: Other (Moves all 4 extremities) Abdomen: Positive: Soft Skin: Positive: Clear Extremities: Absent: edema - Labs and Meds Cardiac Enzymes 11/02/20 Range/Units 07:10 AST 21 (5-40) units/L CBC 11/02/20 Range/Units 07:10 WBC 10.2 (4.5-11.0) K/mm3 RBC 3.17 L (3.65-5.03) M/mm3 Hgb 10.2 (10.1-14.3) gm/dl Hct 29.9 L (30.3-42.9) % Plt Count 255 (140-440) K/mm3 Lymph # (Auto) 1.9 (1.2-5.4) K/mm3 [place]man # (Auto) 1.2 H (0.0-0.8) K/mm3 Eos # (Auto) 0.2 (0.0-0.4) K/mm3 Baso # (Auto) 0.1 (0.0-0.1) K/mm3 Comprehensive Metabolic Panel 11/02/20 Range/Units 07:10 Sodium 141 (137-145) mmol/L Potassium 3.1 L (3.6-5.0) mmol/L Chloride 105.1 (98-107) mmol/L Carbon Dioxide 29 (22-30) mmol/L BUN 12 (7-17) mg/dL Creatinine 0.4 L (0.6-1.2) mg/dL Glucose 168 H (65-100) mg/dL Calcium 7.9 L (8.4-10.2) mg/dL AST 21 (5-40) units/L ALT 13 (7-56) units/L Alkaline Phosphatase 103 (35-129) units/L Total Protein 5.0 L (6.3-8.2) g/dL Albumin 2.2 L (3.9-5) g/dL
[2020-11-02] MEDS: BUDESONIDE 0.5 MG/2 ML NEBU IH SCH (20:50)
[2020-11-02] MEDS: ARFORMOTEROL 15 MCG/2 ML NEBU IH SCH (20:50)
[2020-11-02] MEDS: ENOXAPARIN 40 MG/0.4 ML INJ SUB-Q SCH (21:57)
[2020-11-03] MEDS: dilTIAZem 30 MG TAB PO SCH ×4 (01:24→17:07)
[2020-11-03] MEDS: IPRATROPIUM/ALBUTEROL SULFATE 3 ML AMPUL.NEB IH SCH ×4 (02:41→20:28)
[2020-11-03] MEDS: ACETAMINOPHEN 325 MG TAB PO PRN (03:41)
[2020-11-03] MEDS ORDERED: IPRATROPIUM/ALBUTEROL SULFATE 3 ML AMPUL.NEB IH PRN (06:59)
--- NOTE | 2020-11-03 06:59 | Progress Note ---
Assessment and Plan Assessment and Plan: -Atrial fibrillation with rapid ventricular rate Patient now in sinus tachycardia Probable paroxysmal atrial fibrillation Patient Cardizem 30 mg every 6 hours As per cardiology heart rate is secondary to COPD and respiratory problems Patient on high flow oxygen today --Acute metabolic encephalopathy Current Visit: Yes Status: Acute Multifactorial , dementia .metabolic acidosis .A. fib Treat the underlying cause, will find out from family her baseline status. CT head, no acute abnormality noted COPD exacerbation Patient on duo nebs and IV Solu-Medrol --History of fall; Current Visit: Yes Status: Acute. Fall precautions, physical therapy occupational therapy Possible placement when stable --Hyperglycemia/type 2 diabetes mellitus Accu-Chek sliding scale coverage ADA diet Long-acting insulin as needed, check A1c --Metabolic acidosis Current Visit: Yes Status: Acute BMP, IV fluid resuscitation therapy, repeat BMP in a.m. --Vascular dementia with behavioral disturbance Current Visit: Yes Status: Acute Verbal prompting, verbal redirection, benzodiazepine therapy as clinically indicated. -- Hypertension Current Visit: Yes Status: Acute Monitor blood pressure every shift, continue medical management --GERD (gastroesophageal reflux disease) Current Visit: Yes Status: Acute PPI therapy, supportive care. --Multiple decubiti and wounds of different stages Current Visit: Yes Status: Acute Wound and supportive care --DVT prophylaxis Current Visit: Yes Status: Acute SCD to bilateral lower extremities while in bed --Discharge planning Current Visit: Yes Status: Acute . Possible placement at discharge --Advance care planning Current Visit: Yes Status: Acute Continue current management Discussed with [place] physician Updated her condition Placement route sales manager/construction ironworker helper working on placement Subjective Date of service: 11/02/20 Principal diagnosis: A. fib with RVR Interval history: History of present illness: 70 YO Female with Vascular Dementia with Behavioral Disturbance, Cerebral Atherosclerosis, COPD, DM, Paroxysmal Atrial Fib not on therapeutic anticoagulation, Diastolic CHF, BrCA, GERD, HTN, Scoliosis presents to ED for evaluation. Patient is confused with diminished cognition and is unable to provide history. Patient history taken from EMS staff, ED staff, as well as patient previous medical record. As per staff and unknown individual notified EMS this morning for patient confusion. Upon arrival the patient was found to be in distress and subsequently transported to [facility] for further care and eval uation of the aforementioned symptoms. The patient was seen and evaluated in the emergency department. All lab and imaging studies reviewed. The patient is currently bedbound, nonambulatory and requires 6/6 assistance with activities of daily living. Patient has a palliative performance score 30%. Patient is unable to make needs known or follow simple commands. Patient found to have metabolic encephalopathy, metabolic acidosis, tachycardia not otherwise specified. Patient placed in observation status and admitted to medical floor due to increased risk of worsening symptoms. Patient treated with IV fluid resuscitation therapy, supportive care. Patient is confused and lethargic but has a positive gag reflex and is able to protect her airway without difficulty. No further history is obtainable. Advanced care planning conducted in ED. Case management consulted in ED. 11/01/20 On VM 50 percent Sinus Tachycardia Updated [place] Physician 11/02/2020 Sinus tachycardia present On 30 L nasal cannula oxygen high flow IV fluids stopped Patient is a [facility] patient Family wants placement Patient is slightly confused today Objective - Constitutional Vitals: Vital Signs - 12hr 11/02/20 11/02/20 11/02/20 20:02 20:50 21:10 Temperature Pulse Rate Pulse Rate [ 82 Anterior Bilateral Throughout] Pulse Rate [ 96 H Apical] Respiratory Rate Respiratory 18 Rate [Anterior Bilateral Throughout] Blood Pressure O2 Sat by Pulse 98 97 Oximetry 11/02/20 11/02/20 11/03/20 22:01 22:02 02:35 Temperature 98.2 F Pulse Rate 95 H 95 H Pulse Rate [ 85 Anterior Bilateral Throughout] Pulse Rate [ Apical] Respiratory 18 Rate Respiratory 18 Rate [Anterior Bilateral Throughout] Blood Pressure 129/69 O2 Sat by Pulse 100 100 Oximetry 11/03/20 03:00 Temperature Pulse Rate Pulse Rate [ Anterior Bilateral Throughout] Pulse Rate [ Apical] Respiratory Rate Respiratory Rate [Anterior Bilateral Throughout] Blood Pressure O2 Sat by Pulse 100 Oximetry General appearance: Present: mild distress, well-nourished - EENT Eyes: PERRL, EOM intact ENT: hearing intact, clear oral mucosa Ears: bilateral: normal - Neck Neck: supple, normal ROM - Respiratory Respiratory effort: normal Respiratory: bilateral: CTA, rhonchi, wheezing - Breasts Breasts: normal - Cardiovascular Heart rate: 100 Rhythm: regular Heart Sounds: Present: S1 & S2. Absent: gallop, rub Extremities: pulses intact, No edema, normal color, Full ROM - Gastrointestinal General gastrointestinal: Present: soft, non-tender, non-distended, normal bowel sounds - Genitourinary Female genitourinary: normal - Integumentary Integumentary: clear, warm, dry - Musculoskeletal Musculoskeletal: 1, strength equal bilaterally - Neurologic Neurologic: moves all extremities - Psychiatric Psychiatric: memory intact, appropriate mood/affect, intact judgment & insight - Labs CBC & Chem 7: 11/02/20 07:10 11/02/20 07:10 Labs: Abnormal lab results 11/02/20 11/02/20 11/02/20 Range/Units 07:10 07:10 17:26 RBC 3.17 L (3.65-5.03) M/mm3 Hct 29.9 L (30.3-42.9) % RDW 15.8 H (13.2-15.2) % Williamson % (Auto) 11.6 H (0.0-7.3) % Williamson # (Auto) 1.2 H (0.0-0.8) K/mm3 Potassium 3.1 L (3.6-5.0) mmol/L Creatinine 0.4 L (0.6-1.2) mg/dL Glucose 168 H (65-100) mg/dL POC Glucose 165 H (70-105) mg/dL Calcium 7.9 L (8.4-10.2) mg/dL Total Protein 5.0 L (6.3-8.2) g/dL Albumin 2.2 L (3.9-5) g/dL 11/02/20 Range/Units 22:09 RBC (3.65-5.03) M/mm3 Hct (30.3-42.9) % RDW (13.2-15.2) % Williamson % (Auto) (0.0-7.3) % Williamson # (Auto) (0.0-0.8) K/mm3 Potassium (3.6-5.0) mmol/L Creatinine (0.6-1.2) mg/dL Glucose (65-100) mg/dL POC Glucose 149 H (70-105) mg/dL Calcium (8.4-10.2) mg/dL Total Protein (6.3-8.2) g/dL Albumin (3.9-5) g/dL HEART Score - HEART Score Troponin: Troponin T 0.018 ng/mL (0.00-0.029) 10/29/20 04:25
[2020-11-03] MEDS ORDERED: methylPREDNISolone Sod Succinate 125 MG/2 ML INJ IV SCH (08:00)
[2020-11-03] MEDS ORDERED: IPRATROPIUM/ALBUTEROL SULFATE 3 ML AMPUL.NEB IH SCH (08:00)
--- NOTE | 2020-11-03 08:01 | Progress Note ---
Assessment and Plan Assessment and plan: -Atrial fibrillation with rapid ventricular rate Patient now in sinus tachycardia Probable paroxysmal atrial fibrillation Patient Cardizem 30 mg every 6 hours As per cardiology heart rate is secondary to COPD and respiratory problems Patient on high flow oxygen today --Acute metabolic encephalopathy Current Visit: Yes Status: Acute Multifactorial , dementia .metabolic acidosis .A. fib Treat the underlying cause, will find out from family her baseline status. CT head, no acute abnormality noted COPD exacerbation Patient on duo nebs and IV Solu-Medrol --History of fall; Current Visit: Yes Status: Acute. Fall precautions, physical therapy occupational therapy Possible placement when stable --Hyperglycemia/type 2 diabetes mellitus Accu-Chek sliding scale coverage ADA diet Long-acting insulin as needed, check A1c --Metabolic acidosis Current Visit: Yes Status: Acute BMP, IV fluid resuscitation therapy, repeat BMP in a.m. --Vascular dementia with behavioral disturbance Current Visit: Yes Status: Acute Verbal prompting, verbal redirection, benzodiazepine therapy as clinically indicated. -- Hypertension Current Visit: Yes Status: Acute Monitor blood pressure every shift, continue medical management --GERD (gastroesophageal reflux disease) Current Visit: Yes Status: Acute PPI therapy, supportive care. --Multiple decubiti and wounds of different stages Current Visit: Yes Status: Acute Wound and supportive care --DVT prophylaxis Current Visit: Yes Status: Acute SCD to bilateral lower extremities while in bed --Discharge planning Current Visit: Yes Status: Acute . 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 Patient is confused with diminished cognition and is unable to provide history. Patient history taken from EMS staff, ED staff, as well as patient previous medical record. As per staff and unknown individual notified EMS this morning for patient confusion. Upon arrival the patient was found to be in distress and subsequently transported to [facility] for further care and evaluation of the aforementioned symptoms. The patient was seen and evaluated in the emergency department. All lab and imaging studies reviewed. The patient is currently bedbound, nonambulatory and requires 6/6 assistance with activities of daily living. Patient has a palliative performance score 30%. Patient is unable to make needs known or follow simple commands. Patient found to have metabolic encephalopathy, metabolic acidosis, tachycardia not otherwise specified. Patient placed in observation status and admitted to medical floor due to increased risk of worsening symptoms. Patient treated with IV fluid resuscitation therapy, supportive care. Patient is confused and lethargic but has a positive gag reflex and is able to protect her airway without difficulty. No further history is obtainable. Advanced care planning conducted in ED. Case management consulted in ED. 11/01/20 On VM 50 percent Sinus Tachycardia Updated [place] Physician 11/02/2020 Sinus tachycardia present On 30 L nasal cannula oxygen high flow IV fluids stopped Patient is a [facility] patient Family wants placement Patient is slightly confused today 11/03/2020 History Interval history: I seen and examined the patient at the bedside Patient's chart and medications reviewed Patient feels slightly better no new complaints Vital signs noted Hospitalist Physical - Constitutional Vitals: Temp Pulse Resp BP Pulse Ox 98.2 F 85 18 129/69 100 11/02/20 22:01 11/03/20 02:35 11/03/20 02:35 11/02/20 22:01 11/03/20 03:00 General appearance: Present: mild distress, well-nourished - EENT Eyes: Present: PERRL, EOM intact - Neck Neck: Present: supple, normal ROM - Respiratory Respiratory effort: normal Respiratory: bilateral: diminished, negative: rales, rhonchi, wheezing, other - Cardiovascular Rhythm: regular Heart Sounds: Present: S1 & S2 - Extremities Extremities: no ischemia, pulses intact - Abdominal General gastrointestinal: soft, non-tender, non-distended, normal bowel sounds - Integumentary Integumentary: Present: clear, warm - Psychiatric Psychiatric: appropriate mood/affect, cooperative - Neurologic Neurologic: CNII-XII intact, moves all extremities HEART Score - HEART Score Troponin: Troponin T 0.018 ng/mL (0.00-0.029) 10/29/20 04:25 Results - Labs CBC & Chem 7: 11/02/20 07:10 11/02/20 07:10 Labs: Laboratory Last Values WBC 10.2 K/mm3 (4.5-11.0) 11/02/20 07:10 RBC 3.17 M/mm3 (3.65-5.03) L 11/02/20 07:10 Hgb 10.2 gm/dl (10.1-14.3) 11/02/20 07:10 Hct 29.9 % (30.3-42.9) L 11/02/20 07:10 MCV 95 fl (79-97) 11/02/20 07:10 MCH 32 pg (28-32) 11/02/20 07:10 MCHC 34 % (30-34) 11/02/20 07:10 RDW 15.8 % (13.2-15.2) H 11/02/20 07:10 Plt Count 255 K/mm3 (140-440) 11/02/20 07:10 Lymph % (Auto) 18.4 % (13.4-35.0) 11/02/20 07:10 Ness % (Auto) 11.6 % (0.0-7.3) H 11/02/20 07:10 Eos % (Auto) 1.8 % (0.0-4.3) 11/02/20 07:10 Baso % (Auto) 0.8 % (0.0-1.8) 11/02/20 07:10 Lymph # (Auto) 1.9 K/mm3 (1.2-5.4) 11/02/20 07:10 Ness # (Auto) 1.2 K/mm3 (0.0-0.8) H 11/02/20 07:10 Eos # (Auto) 0.2 K/mm3 (0.0-0.4) 11/02/20 07:10 Baso # (Auto) 0.1 K/mm3 (0.0-0.1) 11/02/20 07:10 Seg Neutrophils % 67.4 % (40.0-70.0) 11/02/20 07:10 Seg Neutrophils # 6.9 K/mm3 (1.8-7.7) 11/02/20 07:10 D-Dimer 1275.25 ng/mlDDU (0-234) H 10/29/20 05:41 ABG pH 7.434 pH Units (7.350-7.450) 11/01/20 21:20 POC ABG pCO2 41.8 mmHg (32.0-48.0) 10/30/20 00:24 ABG pCO2 44.5 mm Hg 11/01/20 21:20 POC ABG pO2 82.3 mmHg (83-108) L 10/30/20 00:24 ABG pO2 87.1 mm Hg (80.0-90.0) 11/01/20 21:20 POC ABG HCO3 25.3 10/30/20 00:24 ABG HCO3 29.2 mmol/L (20.0-26.0) H 11/01/20 21:20 ABG O2 Saturation 97.0 % (95.0-99.0) 11/01/20 21:20 ABG O2 Content 13.3 (0.0-44) 11/01/20 21:20 POC ABG Base Excess 0.4 10/30/20 00:24 ABG Base Excess 4.4 mmol/L (-2.0-3.0) H 11/01/20 21:20 ABG Hemoglobin 9.8 gm/dl (12.0-16.0) L 11/01/20 21:20 ABG Oxyhemoglobin 95.6 (94-98) 10/30/20 00:24 ABG Carboxyhemoglobin 1.1 % (0.0-5.0) 11/01/20 21:20 ABG Methemoglobin 0.6 % (0.0-1.5) 11/01/20 21:20 ABG Sodium 133.5 mmol/L (136.0-145.0) L 10/30/20 00:24 ABG Potassium 3.1 mmol/L (3.40-4.50) L 10/30/20 00:24 ABG Chloride 99.0 mmol/L (98-107) 10/30/20 00:24 ABG Glucose 179 mg/dL (65-95) H 10/30/20 00:24 Oxyhemoglobin 95.4 % (95.0-99.0) 11/01/20 21:20 Carboxyhemoglobin 0.3 (0.5-1.5) L 10/30/20 00:24 FiO2 30 % 11/01/20 21:20 FiO2 % 32.0 10/30/20 00:24 Sodium 141 mmol/L (137-145) 11/02/20 07:10 Potassium 3.1 mmol/L (3.6-5.0) L 11/02/20 07:10 Chloride 105.1 mmol/L (98-107) 11/02/20 07:10 Carbon Dioxide 29 mmol/L (22-30) 11/02/20 07:10 Anion Gap 10 mmol/L 11/02/20 07:10 BUN 12 mg/dL (7-17) 11/02/20 07:10 Creatinine 0.4 mg/dL (0.6-1.2) L 11/02/20 07:10 Estimated GFR > 60 ml/min 11/02/20 07:10 BUN/Creatinine Ratio 30 % 11/02/20 07:10 Glucose 168 mg/dL (65-100) H 11/02/20 07:10 POC Glucose 149 mg/dL (70-105) H 11/02/20 22:09 Lactic Acid 1.70 mmol/L (0.7-2.0) 10/29/20 10:16 Calcium 7.9 mg/dL (8.4-10.2) L 11/02/20 07:10 Magnesium 1.20 mg/dL (1.7-2.3) L 10/29/20 04:25 Ferritin 466.2 ng/mL (10.0-200.0) H 10/30/20 01:19 Total Bilirubin 0.80 mg/dL (0.1-1.2) 11/02/20 07:10 AST 21 units/L (5-40) 11/02/20 07:10 ALT 13 units/L (7-56) 11/02/20 07:10 Alkaline Phosphatase 103 units/L (35-129) 11/02/20 07:10 Lactate Dehydrogenase 540 units/L (91-180) H 10/30/20 01:19 Total Creatine Kinase 454 units/L (30-135) H 10/29/20 04:25 Troponin T 0.018 ng/mL (0.00-0.029) 10/29/20 04:25 C-Reactive Protein 10.10 mg/dL (0.00-1.30) H 10/30/20 01:19 NT-Pro-B Natriuret Pep 231.7 pg/mL (0-900) 10/29/20 04:25 Total Protein 5.0 g/dL (6.3-8.2) L 11/02/20 07:10 Albumin 2.2 g/dL (3.9-5) L 11/02/20 07:10 Albumin/Globulin Ratio 0.8 % 11/02/20 07:10 Procalcitonin 0.72 ng/mL (<0.15) 10/30/20 01:19 TSH 2.290 mlU/mL (0.270-4.200) 10/29/20 04:25 Arterial Blood Glucose 179 mg/dL (65-95) H 10/30/20 00:24 Arterial Blood Ionized Calcium 4.3 mg/dL (4.6-5.3) L 10/30/20 00:24 Urine Color Yellow (Yellow) 10/29/20 14:53 Urine Turbidity Clear (Clear) 10/29/20 14:53 Urine pH 5.0 (5.0-7.0) 10/29/20 14:53 Ur Specific [place] 1.019 (1.003-1.030) 10/29/20 14:53 Urine Protein <15 mg/dl mg/dL (Negative) 10/29/20 14:53 Urine Glucose (UA) 150 mg/dL (Negative) 10/29/20 14:53 Urine Ketones Neg mg/dL (Negative) 10/29/20 14:53 Urine Blood Neg (Negative) 10/29/20 14:53 Urine Nitrite Neg (Negative) 10/29/20 14:53 Urine Bilirubin Neg (Negative) 10/29/20 14:53 Urine Urobilinogen < 2.0 mg/dL (<2.0) 10/29/20 14:53 Ur Leukocyte Esterase Neg (Negative) 10/29/20 14:53 Urine WBC (Auto) 1.0 /HPF (0.0-6.0) 10/29/20 14:53 Urine RBC (Auto) 1.0 /HPF (0.0-6.0) 10/29/20 14:53 Hyaline Casts 1 /LPF 10/29/20 14:53 Salicylates < 0.3 mg/dL (2.8-20.0) L 10/29/20 04:25 Acetaminophen < 5.0 ug/mL (10.0-30.0) L 10/29/20 04:25 Plasma/Serum Alcohol < 0.01 % (0-0.07) 10/29/20 04:25 Coronavirus (PCR) Negative (Negative) 10/29/20 Unknown [place]/IV: Voiding Method Incontinent Active Medications - Current Medications Current Medications: Generic Name Dose Route Start Last Admin Trade Name Freq PRN Reason Stop Dose Admin Acetaminophen 650 mg 10/29/20 13:00 11/03/20 03:41 Acetaminophen 325 Mg Tab PO 650 mg Q4H PRN Administration Pain MILD(1-3)/Fever >100.5/HOFFMAN Albuterol 2.5 mg 11/02/20 08:43 Albuterol 2.5 Mg/3 Ml Nebu IH Q4HRT PRN Shortness Of Breath Albuterol/Ipratropium 1 ampul 11/02/20 14:00 11/03/20 02:41 Ipratropium/Albuterol Sulfate 3 Ml Ampul.Neb IH 1 ampul Q6HRT AGUEDA Administration Arformoterol Tartrate 15 mcg 11/02/20 20:00 11/02/20 20:50 Arformoterol 15 Mcg/2 Ml Nebu IH 15 mcg Q12HRT AGUEDA Administration Budesonide 0.5 mg 11/02/20 20:00 11/02/20 20:50 Budesonide 0.5 Mg/2 Ml Nebu IH 0.5 mg Q12HRT AGUEDA Administration Diltiazem HCl 30 mg 10/31/20 12:00 11/03/20 05:57 Diltiazem 30 Mg Tab PO 30 mg Q6HR AGUEDA Administration Enoxaparin Sodium 40 mg 10/30/20 00:30 11/02/20 21:57 Enoxaparin 40 Mg/0.4 Ml Inj SUB-Q 40 mg QDAY@2200 AGUEDA Administration Protocol Guaifenesin 10 ml 11/02/20 03:56 11/02/20 21:57 Guaifenesin Dm 200/20 Mg Oral Liqd 10 Ml PO 10 ml Q6H PRN Administration Cough Levofloxacin/Dextrose 750 mg in 150 mls @ 100 mls/hr 11/03/20 08:00 Levaquin 750mg/150ml IV 11/07/20 11:59 Q24HR [facility] Protocol Insulin Human Lispro 0 unit 10/30/20 22:00 11/02/20 22:23 Insulin Lispro 100 Unit/Ml SUB-Q Not Given ACHS [facility] Protocol Lorazepam 1 mg 10/29/20 12:37 10/30/20 19:32 Lorazepam 2 Mg/Ml Vial IV 1 mg Q4H PRN Administration Agitation Methylprednisolone Sodium Succinate 40 mg 11/03/20 08:00 Methylprednisolone Sod Succinate 40 Mg/1 Ml Inj IV Q8H AGUEDA Metoprolol Succinate 50 mg 10/29/20 22:00 11/02/20 09:34 Metoprolol Succinate Xl 50 Mg Tab PO 50 mg QDAY AGUEDA Administration Ondansetron HCl 4 mg 10/29/20 14:00 Ondansetron 4 Mg/2 Ml Inj IV Q8H PRN Nausea And Vomiting Sodium Chloride 10 ml 10/29/20 22:00 11/02/20 21:57 Sodium Chloride 0.9% 10 Ml Flush Syringe IV 10 ml BID AGUEDA Administration Sodium Chloride 10 ml 10/29/20 13:00 10/29/20 23:41 Sodium Chloride 0.9% 10 Ml Flush Syringe IV 10 ml PRN PRN Administration LINE FLUSH
[2020-11-03] MEDS: INSULIN LISPRO 100 UNIT/ML SUB-Q SCH ×4 (08:16→21:52)
[2020-11-03] MEDS: BUDESONIDE 0.5 MG/2 ML NEBU IH SCH ×2 (08:40→20:25)
[2020-11-03] MEDS: ARFORMOTEROL 15 MCG/2 ML NEBU IH SCH ×2 (08:40→20:28)
--- NOTE | 2020-11-03 08:53 | Progress Note ---
Assessment and Plan Hx of paroxysmal atrial fibrillation on Pradaxa as an outpatient for oral AC. currently, she is stable sinus rhythm; on Toprol XL for suppression. Respiratory failure Htn DM II Vascular dementia Continue medical therapy for paroxysmal atrial fibrillation. Otherwise, conservative cardiac management. Subjective Date of service: 11/03/20 Principal diagnosis: A. fib with RVR Interval history: No cardiac events. Currently, stable sinus rhythm on telemetry. Objective Vital Signs Temp Pulse Pulse Pulse Resp Resp BP 11/03/20 03:00 11/03/20 02:35 85 18 11/02/20 22:02 95 H 11/02/20 22:01 98.2 F 95 H 18 129/69 11/02/20 21:10 11/02/20 20:50 82 18 11/02/20 20:02 96 H 11/02/20 17:31 97 H 133/58 11/02/20 14:00 11/02/20 09:50 97.9 F 85 18 117/55 11/02/20 09:29 98.0 F 112 H 22 137/88 Pulse Ox 11/03/20 03:00 100 11/03/20 02:35 11/02/20 22:02 100 11/02/20 22:01 100 11/02/20 21:10 97 11/02/20 20:50 11/02/20 20:02 98 11/02/20 17:31 11/02/20 14:00 99 11/02/20 09:50 99 11/02/20 09:29 100 - Physical Examination General: Other (Confused, bilateral wrist restraints) HEENT: Positive: PERRL Neck: Positive: neck supple Cardiac: Positive: Reg Rate and Rhythm
[2020-11-03] MEDS: METOPROLOL SUCCINATE XL 50 MG TAB PO SCH (09:09)
[2020-11-03] MEDS: LORazepam 2 MG/ML VIAL IV PRN ×3 (09:09→17:07)
[2020-11-03] MEDS: methylPREDNISolone Sod Succinate 40 MG/1 ML INJ IV SCH ×2 (09:09→17:07)
[2020-11-03] MEDS: ENOXAPARIN 40 MG/0.4 ML INJ SUB-Q SCH (21:55)
[2020-11-04] MEDS: dilTIAZem 30 MG TAB PO SCH ×5 (00:14→23:54)
[2020-11-04] MEDS: methylPREDNISolone Sod Succinate 40 MG/1 ML INJ IV SCH ×4 (00:15→23:55)
[2020-11-04] MEDS: IPRATROPIUM/ALBUTEROL SULFATE 3 ML AMPUL.NEB IH SCH ×4 (04:41→20:13)
[2020-11-04] MEDS: BUDESONIDE 0.5 MG/2 ML NEBU IH SCH ×2 (08:19→20:13)
[2020-11-04] MEDS: ARFORMOTEROL 15 MCG/2 ML NEBU IH SCH ×2 (08:20→20:13)
[2020-11-04] MEDS: LORazepam 2 MG/ML VIAL IV PRN ×2 (08:41→17:24)
[2020-11-04] MEDS: METOPROLOL SUCCINATE XL 50 MG TAB PO SCH (09:35)
[2020-11-04] MEDS: INSULIN LISPRO 100 UNIT/ML SUB-Q SCH ×4 (09:36→23:37)
--- NOTE | 2020-11-04 09:37 | Progress Note ---
Assessment and Plan Assessment and plan: --Acute metabolic encephalopathy Current Visit: Yes Status: Acute Multifactorial , dementia .metabolic acidosis .A. fib Treat the underlying cause, will find out from family her baseline status. CT head, no acute abnormality noted Back to baseline status -Atrial fibrillation with rapid ventricular rate Patient now in sinus tachycardia Probable paroxysmal atrial fibrillation Patient Cardizem 30 mg every 6 hours Cardiology cleared for discharge -- COPD exacerbation Patient on duo nebs and IV Solu-Medrol --History of fall; Current Visit: Yes Status: Acute. Fall precautions, physical therapy occupational therapy Possible placement when stable --Hyperglycemia/type 2 diabetes mellitus Accu-Chek sliding scale coverage ADA diet Long-acting insulin as needed, check A1c --Metabolic acidosis Current Visit: Yes Status: Acute BMP, IV fluid resuscitation therapy, repeat BMP in a.m. --Vascular dementia with behavioral disturbance Current Visit: Yes Status: Acute Verbal prompting, verbal redirection, benzodiazepine therapy as clinically indicated. -- Hypertension Current Visit: Yes Status: Acute Monitor blood pressure every shift, continue medical management --GERD (gastroesophageal reflux disease) Current Visit: Yes Status: Acute PPI therapy, supportive care. --Multiple decubiti and wounds of different stages Current Visit: Yes Status: Acute Wound and supportive care --DVT prophylaxis Current Visit: Yes Status: Acute SCD to bilateral lower extremities while in bed --Discharge planning Current Visit: Yes Status: Acute . 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 Patient is confused with diminished cognition and is unable to provide history. Patient history taken from EMS staff, ED staff, as well as patient previous medical record. As per staff and unknown individual notified EMS this morning for patient confusion. Upon arrival the patient was found to be in distress and subsequently transported to [facility] for further care and evaluation of the aforementioned symptoms. The patient was seen and evaluated in the emergency department. All lab and imaging studies reviewed. The patient is currently bedbound, nonambulatory and requires 6/6 assistance with activities of daily living. Patient has a palliative performance score 30%. Patient is unable to make needs known or follow simple commands. Patient found to have metabolic encephalopathy, metabolic acidosis, tachycardia not otherwise specified. Patient placed in observation status and admitted to medical floor due to increased risk of worsening symptoms. Patient treated with IV fluid resuscitation therapy, supportive care. Patient is confused and lethargic but has a positive gag reflex and is able to protect her airway without difficulty. No further history is obtainable. Advanced care planning conducted in ED. Case management consulted in ED. 11/01/20 On VM 50 percent Sinus Tachycardia Updated [place] Physician 11/02/2020 Sinus tachycardia present On 30 L nasal cannula oxygen high flow IV fluids stopped Patient is a [facility] patient Family wants placement Patient is slightly confused today 11/03/2020; awaiting LTAC placement 11/04/2020; awaiting [place] [facility] placement Pending insurance authorization History Interval history: I have seen and examined the patient at the bedside this morning Patient's chart and medications reviewed Patient feels slightly better no new complaints Patient is medically stable for discharge Awaiting LTAC placement Vital signs reviewed Hospitalist Physical - Constitutional Vitals: Temp Pulse Resp BP Pulse Ox 98 F 111 H 18 132/80 98 11/04/20 01:10 11/04/20 09:35 11/04/20 02:00 11/04/20 09:35 11/04/20 02:00 General appearance: Present: no acute distress, well-nourished - EENT Eyes: Present: PERRL, EOM intact - Neck Neck: Present: supple, normal ROM - Respiratory Respiratory effort: normal Respiratory: bilateral: diminished, negative: rales, rhonchi, wheezing - Cardiovascular Rhythm: regular Heart Sounds: Present: S1 & S2 - Extremities Extremities: no ischemia, pulses intact - Abdominal General gastrointestinal: soft, non-tender, non-distended, normal bowel sounds - Integumentary Integumentary: Present: clear, warm - Psychiatric Psychiatric: appropriate mood/affect, cooperative - Neurologic Neurologic: moves all extremities HEART Score - HEART Score Troponin: Troponin T 0.018 ng/mL (0.00-0.029) 10/29/20 04:25 Results - Labs CBC & Chem 7: 11/02/20 07:10 11/02/20 07:10 Labs: Laboratory Last Values WBC 10.2 K/mm3 (4.5-11.0) 11/02/20 07:10 RBC 3.17 M/mm3 (3.65-5.03) L 11/02/20 07:10 Hgb 10.2 gm/dl (10.1-14.3) 11/02/20 07:10 Hct 29.9 % (30.3-42.9) L 11/02/20 07:10 MCV 95 fl (79-97) 11/02/20 07:10 MCH 32 pg (28-32) 11/02/20 07:10 MCHC 34 % (30-34) 11/02/20 07:10 RDW 15.8 % (13.2-15.2) H 11/02/20 07:10 Plt Count 255 K/mm3 (140-440) 11/02/20 07:10 Lymph % (Auto) 18.4 % (13.4-35.0) 11/02/20 07:10 Johnston % (Auto) 11.6 % (0.0-7.3) H 11/02/20 07:10 Eos % (Auto) 1.8 % (0.0-4.3) 11/02/20 07:10 Baso % (Auto) 0.8 % (0.0-1.8) 11/02/20 07:10 Lymph # (Auto) 1.9 K/mm3 (1.2-5.4) 11/02/20 07:10 Johnston # (Auto) 1.2 K/mm3 (0.0-0.8) H 11/02/20 07:10 Eos # (Auto) 0.2 K/mm3 (0.0-0.4) 11/02/20 07:10 Baso # (Auto) 0.1 K/mm3 (0.0-0.1) 11/02/20 07:10 Seg Neutrophils % 67.4 % (40.0-70.0) 11/02/20 07:10 Seg Neutrophils # 6.9 K/mm3 (1.8-7.7) 11/02/20 07:10 D-Dimer 1275.25 ng/mlDDU (0-234) H 10/29/20 05:41 ABG pH 7.434 pH Units (7.350-7.450) 11/01/20 21:20 POC ABG pCO2 41.8 mmHg (32.0-48.0) 10/30/20 00:24 ABG pCO2 44.5 mm Hg 11/01/20 21:20 POC ABG pO2 82.3 mmHg (83-108) L 10/30/20 00:24 ABG pO2 87.1 mm Hg (80.0-90.0) 11/01/20 21:20 POC ABG HCO3 25.3 10/30/20 00:24 ABG HCO3 29.2 mmol/L (20.0-26.0) H 11/01/20 21:20 ABG O2 Saturation 97.0 % (95.0-99.0) 11/01/20 21:20 ABG O2 Content 13.3 (0.0-44) 11/01/20 21:20 POC ABG Base Excess 0.4 10/30/20 00:24 ABG Base Excess 4.4 mmol/L (-2.0-3.0) H 11/01/20 21:20 ABG Hemoglobin 9.8 gm/dl (12.0-16.0) L 11/01/20 21:20 ABG Oxyhemoglobin 95.6 (94-98) 10/30/20 00:24 ABG Carboxyhemoglobin 1.1 % (0.0-5.0) 11/01/20 21:20 ABG Methemoglobin 0.6 % (0.0-1.5) 11/01/20 21:20 ABG Sodium 133.5 mmol/L (136.0-145.0) L 10/30/20 00:24 ABG Potassium 3.1 mmol/L (3.40-4.50) L 10/30/20 00:24 ABG Chloride 99.0 mmol/L (98-107) 10/30/20 00:24 ABG Glucose 179 mg/dL (65-95) H 10/30/20 00:24 Oxyhemoglobin 95.4 % (95.0-99.0) 11/01/20 21:20 Carboxyhemoglobin 0.3 (0.5-1.5) L 10/30/20 00:24 FiO2 30 % 11/01/20 21:20 FiO2 % 32.0 10/30/20 00:24 Sodium 141 mmol/L (137-145) 11/02/20 07:10 Potassium 3.1 mmol/L (3.6-5.0) L 11/02/20 07:10 Chloride 105.1 mmol/L (98-107) 11/02/20 07:10 Carbon Dioxide 29 mmol/L (22-30) 11/02/20 07:10 Anion Gap 10 mmol/L 11/02/20 07:10 BUN 12 mg/dL (7-17) 11/02/20 07:10 Creatinine 0.4 mg/dL (0.6-1.2) L 11/02/20 07:10 Estimated GFR > 60 ml/min 11/02/20 07:10 BUN/Creatinine Ratio 30 % 11/02/20 07:10 Glucose 168 mg/dL (65-100) H 11/02/20 07:10 POC Glucose 247 mg/dL (70-105) H 11/03/20 21:13 Lactic Acid 1.70 mmol/L (0.7-2.0) 10/29/20 10:16 Calcium 7.9 mg/dL (8.4-10.2) L 11/02/20 07:10 Magnesium 1.20 mg/dL (1.7-2.3) L 10/29/20 04:25 Ferritin 466.2 ng/mL (10.0-200.0) H 10/30/20 01:19 Total Bilirubin 0.80 mg/dL (0.1-1.2) 11/02/20 07:10 AST 21 units/L (5-40) 11/02/20 07:10 ALT 13 units/L (7-56) 11/02/20 07:10 Alkaline Phosphatase 103 units/L (35-129) 11/02/20 07:10 Lactate Dehydrogenase 540 units/L (91-180) H 10/30/20 01:19 Total Creatine Kinase 454 units/L (30-135) H 10/29/20 04:25 Troponin T 0.018 ng/mL (0.00-0.029) 10/29/20 04:25 C-Reactive Protein 10.10 mg/dL (0.00-1.30) H 10/30/20 01:19 NT-Pro-B Natriuret Pep 231.7 pg/mL (0-900) 10/29/20 04:25 Total Protein 5.0 g/dL (6.3-8.2) L 11/02/20 07:10 Albumin 2.2 g/dL (3.9-5) L 11/02/20 07:10 Albumin/Globulin Ratio 0.8 % 11/02/20 07:10 Procalcitonin 0.72 ng/mL (<0.15) 10/30/20 01:19 TSH 2.290 mlU/mL (0.270-4.200) 10/29/20 04:25 Arterial Blood Glucose 179 mg/dL (65-95) H 10/30/20 00:24 Arterial Blood Ionized Calcium 4.3 mg/dL (4.6-5.3) L 10/30/20 00:24 Urine Color Yellow (Yellow) 10/29/20 14:53 Urine Turbidity Clear (Clear) 10/29/20 14:53 Urine pH 5.0 (5.0-7.0) 10/29/20 14:53 Ur Specific Winner 1.019 (1.003-1.030) 10/29/20 14:53 Urine Protein <15 mg/dl mg/dL (Negative) 10/29/20 14:53 Urine Glucose (UA) 150 mg/dL (Negative) 10/29/20 14:53 Urine Ketones Neg mg/dL (Negative) 10/29/20 14:53 Urine Blood Neg (Negative) 10/29/20 14:53 Urine Nitrite Neg (Negative) 10/29/20 14:53 Urine Bilirubin Neg (Negative) 10/29/20 14:53 Urine Urobilinogen < 2.0 mg/dL (<2.0) 10/29/20 14:53 Ur Leukocyte Esterase Neg (Negative) 10/29/20 14:53 Urine WBC (Auto) 1.0 /HPF (0.0-6.0) 10/29/20 14:53 Urine RBC (Auto) 1.0 /HPF (0.0-6.0) 10/29/20 14:53 Hyaline Casts 1 /LPF 10/29/20 14:53 Salicylates < 0.3 mg/dL (2.8-20.0) L 10/29/20 04:25 Acetaminophen < 5.0 ug/mL (10.0-30.0) L 10/29/20 04:25 Plasma/Serum Alcohol < 0.01 % (0-0.07) 10/29/20 04:25 Coronavirus (PCR) Negative (Negative) 10/29/20 Unknown Mcelroy/IV: Voiding Method Incontinent Active Medications - Current Medications Current Medications: Generic Name Dose Route Start Last Admin Trade Name Freq PRN Reason Stop Dose Admin Acetaminophen 650 mg 10/29/20 13:00 11/03/20 03:41 Acetaminophen 325 Mg Tab PO 650 mg Q4H PRN Administration Pain MILD(1-3)/Fever >100.5/HOFFMAN Albuterol 2.5 mg 11/02/20 08:43 Albuterol 2.5 Mg/3 Ml Nebu IH Q4HRT PRN Shortness Of Breath Albuterol/Ipratropium 1 ampul 11/02/20 14:00 11/04/20 08:19 Ipratropium/Albuterol Sulfate 3 Ml Ampul.Neb IH 1 ampul Q6HRT AGUEDA Administration Arformoterol Tartrate 15 mcg 11/02/20 20:00 11/04/20 08:20 Arformoterol 15 Mcg/2 Ml Nebu IH 15 mcg Q12HRT AGUEDA Administration Budesonide 0.5 mg 11/02/20 20:00 11/04/20 08:19 Budesonide 0.5 Mg/2 Ml Nebu IH 0.5 mg Q12HRT AGUDEA Administration Diltiazem HCl 30 mg 10/31/20 12:00 11/04/20 07:20 Diltiazem 30 Mg Tab PO 30 mg Q6HR AGUEDA Administration Enoxaparin Sodium 40 mg 10/30/20 00:30 11/03/20 21:55 Enoxaparin 40 Mg/0.4 Ml Inj SUB-Q 40 mg QDAY@2200 AGUEDA Administration Protocol Guaifenesin 10 ml 11/02/20 03:56 11/02/20 21:57 Guaifenesin Dm 200/20 Mg Oral Liqd 10 Ml PO 10 ml Q6H PRN Administration Cough Levofloxacin/Dextrose 750 mg in 150 mls @ 100 mls/hr 11/03/20 08:00 11/04/20 09:35 Levaquin 750mg/150ml IV 11/07/20 11:59 100 mls/hr Q24HR AGUEDA Administration Protocol Insulin Human Lispro 0 unit 10/30/20 22:00 11/04/20 09:36 Insulin Lispro 100 Unit/Ml SUB-Q Not Given ACHS COUNT INCLUDES THE [facility] Protocol Lorazepam 1 mg 10/29/20 12:37 11/04/20 08:41 Lorazepam 2 Mg/Ml Vial IV 1 mg Q4H PRN Administration Agitation Methylprednisolone Sodium Succinate 40 mg 11/03/20 08:00 11/04/20 09:35 Methylprednisolone Sod Succinate 40 Mg/1 Ml Inj IV 40 mg Q8H AGUEDA Administration Metoprolol Succinate 50 mg 10/29/20 22:00 11/04/20 09:35 Metoprolol Succinate Xl 50 Mg Tab PO 50 mg QDAY AGUEDA Administration Ondansetron HCl 4 mg 10/29/20 14:00 Ondansetron 4 Mg/2 Ml Inj IV Q8H PRN Nausea And Vomiting Sodium Chloride 10 ml 10/29/20 22:00 11/03/20 21:56 Sodium Chloride 0.9% 10 Ml Flush Syringe IV 10 ml BID AGUEDA Administration Sodium Chloride 10 ml 10/29/20 13:00 10/29/20 23:41 Sodium Chloride 0.9% 10 Ml Flush Syringe IV 10 ml PRN PRN Administration LINE FLUSH
--- NOTE | 2020-11-04 09:40 | Progress Note ---
Assessment and Plan Hx of paroxysmal atrial fibrillation on Pradaxa as an outpatient for oral AC. currently, she is stable sinus rhythm; on Toprol XL for suppression. Respiratory failure Htn DM II Vascular dementia Continue medical therapy for paroxysmal atrial fibrillation. Otherwise, conservative cardiac management. Subjective Date of service: 11/04/20 Principal diagnosis: A. fib with RVR Interval history: No cardiac events. Objective Vital Signs Temp Pulse Pulse Pulse Pulse Resp Resp 11/04/20 09:35 111 H 11/04/20 07:20 111 H 11/04/20 02:00 104 H 11/04/20 01:10 98 F 100 H 26 H 11/04/20 00:14 110 H 11/04/20 00:00 100 H 11/03/20 20:30 101 H 11/03/20 20:29 11/03/20 17:07 90 11/03/20 16:28 104 H 11/03/20 16:25 99 H 11/03/20 15:55 98 H 106 H 18 11/03/20 13:36 90 11/03/20 11:19 90 11/03/20 11:16 94 H Resp BP BP Pulse Ox 11/04/20 09:35 132/80 11/04/20 07:20 132/80 11/04/20 02:00 18 98 11/04/20 01:10 136/72 11/04/20 00:14 136/72 11/04/20 00:00 100 11/03/20 20:30 18 11/03/20 20:29 100 11/03/20 17:07 11/03/20 16:28 100 11/03/20 16:25 100 11/03/20 15:55 18 11/03/20 13:36 11/03/20 11:19 100 11/03/20 11:16 99 - Physical Examination General: Other (Confused, bilateral wrist restraints) HEENT: Positive: PERRL Cardiac: Positive: Tachycardia
[2020-11-04] MEDS ORDERED: LIP THERAPY VASELINE TP PRN (14:00)
[2020-11-04] MEDS: ENOXAPARIN 40 MG/0.4 ML INJ SUB-Q SCH (22:54)
[2020-11-05] MEDS: ACETAMINOPHEN 325 MG TAB PO PRN ×2 (03:48→12:16)
[2020-11-05] MEDS: LORazepam 2 MG/ML VIAL IV PRN ×2 (04:00→12:18)
[2020-11-05] MEDS: IPRATROPIUM/ALBUTEROL SULFATE 3 ML AMPUL.NEB IH SCH ×4 (06:21→20:19)
[2020-11-05 06:34] LABS: Blood Urea Nitrogen 18 mg/dL (7-17); Calcium 8.3 mg/dL (8.4-10.2)
[2020-11-05 06:35] LABS: BUN/Creatinine Ratio 26
[2020-11-05] MEDS: dilTIAZem 30 MG TAB PO SCH ×3 (06:39→17:22)
[2020-11-05] MEDS: BUDESONIDE 0.5 MG/2 ML NEBU IH SCH ×2 (08:12→20:19)
[2020-11-05] MEDS: ARFORMOTEROL 15 MCG/2 ML NEBU IH SCH ×2 (08:12→20:19)
--- NOTE | 2020-11-05 08:28 | Progress Note ---
Assessment and Plan Assessment and plan: --Severe hypomagnesemia; Mg 1.0 Current Visit: Yes Status: Acute Replenished with magnesium sulfate[total 5 g] Closely monitor electrolytes --Hypokalemia/hypophosphatemia; Current Visit: Yes Status: Acute Replenished with KCl 40 mEq x 2 --Acute toxic metabolic encephalopathy Current Visit: Yes Status: Acute Multifactorial , dementia .metabolic acidosis .A. fib Treat the underlying cause, will find out from family her baseline status. CT head, no acute abnormality noted Agitated at times, DC Ativan, start Haldol 2 mg every 6 hours as needed for agitation --Atrial fibrillation with rapid ventricular rate Current Visit: Yes Status: Acute Patient now in sinus tachycardia Probable paroxysmal atrial fibrillation Patient Cardizem 30 mg every 6 hours. Cardiology cleared for discharge -- COPD exacerbation Current Visit: Yes Status: Acute Patient on duo nebs and IV Solu-Medrol --History of fall; Current Visit: Yes Status: Acute. Fall precautions, physical therapy occupational therapy. Possible placement when stable --Hyperglycemia/type 2 diabetes mellitus Current Visit: Yes Status: Acute Accu-Chek sliding scale coverage ADA diet Long-acting insulin as needed, check A1c --Metabolic acidosis Current Visit: Yes Status: Acute BMP, IV fluid resuscitation therapy, repeat BMP in a.m. --Vascular dementia with behavioral disturbance Current Visit: Yes Status: Acute Verbal prompting, verbal redirection, benzodiazepine therapy as clinically indicated. -- Hypertension Current Visit: Yes Status: Acute Monitor blood pressure every shift, continue medical management --GERD (gastroesophageal reflux disease) Current Visit: Yes Status: Acute PPI therapy, supportive care. --Multiple decubiti and wounds of different stages Current Visit: Yes Status: Acute Wound and supportive care --DVT prophylaxis Current Visit: Yes Status: Acute SCD to bilateral lower extremities while in bed --Discharge planning Current Visit: Yes Status: Acute . Possible placement at discharge --Advance care planning Current Visit: Yes Status: Acute Continue current management Discussed with [place] physician Updated her condition DC planning per case management . CM considering hospice placement Discussed with the family/son Plan for inpatient hospice placement but it is set up Plan of care reviewed with the patient and her nurse as well as her case management Brief history and daily hospital course 70 YO Female with Vascular Dementia with Behavioral Disturbance, Cerebral Atherosclerosis, COPD, DM, Paroxysmal Atrial Fib not on therapeutic anticoagulation, Diastolic CHF, BrCA, GERD, HTN, Scoliosis presents to ED for evaluation. Patient is confused with diminished cognition and is unable to provide history. Patient history taken from EMS staff, ED staff, as well as patient previous medical record. As per staff and unknown individual notified EMS this morning for patient confusion. Upon arrival the patient was found to be in distress and subsequently transported to [facility] for further care and evaluation of the aforementioned symptoms. The patient was seen and evaluated in the emergency department. All lab and imaging studies reviewed. The patient is currently bedbound, nonambulatory and requires 6/6 assistance with activities of daily living. Patient has a palliative performance score 30%. Patient is unable to make needs known or follow simple commands. Patient found to have metabolic encephalopathy, metabolic acidosis, tachycardia not otherwise specified. Patient placed in observation status and admitted to medical floor due to increased risk of worsening symptoms. Patient treated with IV fluid resuscitation therapy, supportive care. Patient is confused and lethargic but has a positive gag reflex and is able to protect her airway without difficulty. No further history is obtainable. Advanced care planning conducted in ED. Case management consulted in ED. 11/01/20 On VM 50 percent Sinus Tachycardia Updated [place] Physician 11/02/2020 Sinus tachycardia present On 30 L nasal cannula oxygen high flow IV fluids stopped Patient is a [facility] patient Family wants placement Patient is slightly confused today 11/03/2020; awaiting LTAC placement 11/04/2020; awaiting [place] [facility] placement Pending insurance authorization 11/05/2020; multiple electrolyte imbalance Hypokalemia, hypomagnesemia, hypophosphatemia Replenished per protocol follow electrolytes Pending placement/considering inpatient hospice History Interval history: I have seen and examined the patient at the bedside Patient's chart and medications reviewed Patient is slightly agitated requiring restraints Confused, Vital signs noted Hospitalist Physical - Constitutional Vitals: Temp Pulse Resp BP Pulse Ox 98.0 F 97 H 26 H 113/48 99 11/05/20 05:15 11/05/20 06:39 11/05/20 05:15 11/05/20 05:15 11/05/20 08:14 General appearance: Present: no acute distress, well-nourished - EENT Eyes: Present: PERRL, EOM intact - Neck Neck: Present: supple, normal ROM - Respiratory Respiratory effort: normal Respiratory: bilateral: diminished, rhonchi, negative: rales, wheezing - Cardiovascular Rhythm: regular Heart Sounds: Present: S1 & S2 - Extremities Extremities: no ischemia, No edema - Abdominal General gastrointestinal: soft, non-tender, non-distended, normal bowel sounds - Integumentary Integumentary: Present: clear, warm - Psychiatric Psychiatric: agitated, other (Restless requiring restraints) - Neurologic Neurologic: moves all extremities HEART Score - HEART Score Troponin: Troponin T 0.018 ng/mL (0.00-0.029) 10/29/20 04:25 Results - Labs CBC & Chem 7: 11/02/20 07:10 11/05/20 04:40 Labs: Laboratory Last Values WBC 10.2 K/mm3 (4.5-11.0) 11/02/20 07:10 RBC 3.17 M/mm3 (3.65-5.03) L 11/02/20 07:10 Hgb 10.2 gm/dl (10.1-14.3) 11/02/20 07:10 Hct 29.9 % (30.3-42.9) L 11/02/20 07:10 MCV 95 fl (79-97) 11/02/20 07:10 MCH 32 pg (28-32) 11/02/20 07:10 MCHC 34 % (30-34) 11/02/20 07:10 RDW 15.8 % (13.2-15.2) H 11/02/20 07:10 Plt Count 255 K/mm3 (140-440) 11/02/20 07:10 Lymph % (Auto) 18.4 % (13.4-35.0) 11/02/20 07:10 Castro % (Auto) 11.6 % (0.0-7.3) H 11/02/20 07:10 Eos % (Auto) 1.8 % (0.0-4.3) 11/02/20 07:10 Baso % (Auto) 0.8 % (0.0-1.8) 11/02/20 07:10 Lymph # (Auto) 1.9 K/mm3 (1.2-5.4) 11/02/20 07:10 Castro # (Auto) 1.2 K/mm3 (0.0-0.8) H 11/02/20 07:10 Eos # (Auto) 0.2 K/mm3 (0.0-0.4) 11/02/20 07:10 Baso # (Auto) 0.1 K/mm3 (0.0-0.1) 11/02/20 07:10 Seg Neutrophils % 67.4 % (40.0-70.0) 11/02/20 07:10 Seg Neutrophils # 6.9 K/mm3 (1.8-7.7) 11/02/20 07:10 D-Dimer 1275.25 ng/mlDDU (0-234) H 10/29/20 05:41 ABG pH 7.434 pH Units (7.350-7.450) 11/01/20 21:20 POC ABG pCO2 41.8 mmHg (32.0-48.0) 10/30/20 00:24 ABG pCO2 44.5 mm Hg 11/01/20 21:20 POC ABG pO2 82.3 mmHg (83-108) L 10/30/20 00:24 ABG pO2 87.1 mm Hg (80.0-90.0) 11/01/20 21:20 POC ABG HCO3 25.3 10/30/20 00:24 ABG HCO3 29.2 mmol/L (20.0-26.0) H 11/01/20 21:20 ABG O2 Saturation 97.0 % (95.0-99.0) 11/01/20 21:20 ABG O2 Content 13.3 (0.0-44) 11/01/20 21:20 POC ABG Base Excess 0.4 10/30/20 00:24 ABG Base Excess 4.4 mmol/L (-2.0-3.0) H 11/01/20 21:20 ABG Hemoglobin 9.8 gm/dl (12.0-16.0) L 11/01/20 21:20 ABG Oxyhemoglobin 95.6 (94-98) 10/30/20 00:24 ABG Carboxyhemoglobin 1.1 % (0.0-5.0) 11/01/20 21:20 ABG Methemoglobin 0.6 % (0.0-1.5) 11/01/20 21:20 ABG Sodium 133.5 mmol/L (136.0-145.0) L 10/30/20 00:24 ABG Potassium 3.1 mmol/L (3.40-4.50) L 10/30/20 00:24 ABG Chloride 99.0 mmol/L (98-107) 10/30/20 00:24 ABG Glucose 179 mg/dL (65-95) H 10/30/20 00:24 Oxyhemoglobin 95.4 % (95.0-99.0) 11/01/20 21:20 Carboxyhemoglobin 0.3 (0.5-1.5) L 10/30/20 00:24 FiO2 30 % 11/01/20 21:20 FiO2 % 32.0 10/30/20 00:24 Sodium 141 mmol/L (137-145) 11/05/20 04:40 Potassium 3.1 mmol/L (3.6-5.0) L 11/05/20 04:40 Chloride 96.7 mmol/L (98-107) L 11/05/20 04:40 Carbon Dioxide 31 mmol/L (22-30) H 11/05/20 04:40 Anion Gap 16 mmol/L 11/05/20 04:40 BUN 18 mg/dL (7-17) H 11/05/20 04:40 Creatinine 0.7 mg/dL (0.6-1.2) D 11/05/20 04:40 Estimated GFR > 60 ml/min 11/05/20 04:40 BUN/Creatinine Ratio 26 % 11/05/20 04:40 Glucose 386 mg/dL (65-100) H 11/05/20 04:40 POC Glucose 345 mg/dL (70-105) H 11/05/20 07:57 Lactic Acid 1.70 mmol/L (0.7-2.0) 10/29/20 10:16 Calcium 8.3 mg/dL (8.4-10.2) L 11/05/20 04:40 Phosphorus 2.40 mg/dL (2.5-4.5) L 11/05/20 04:40 Magnesium 1.00 mg/dL (1.7-2.3) L 11/05/20 04:40 Ferritin 466.2 ng/mL (10.0-200.0) H 10/30/20 01:19 Total Bilirubin 0.80 mg/dL (0.1-1.2) 11/02/20 07:10 AST 21 units/L (5-40) 11/02/20 07:10 ALT 13 units/L (7-56) 11/02/20 07:10 Alkaline Phosphatase 103 units/L (35-129) 11/02/20 07:10 Lactate Dehydrogenase 540 units/L (91-180) H 10/30/20 01:19 Total Creatine Kinase 454 units/L (30-135) H 10/29/20 04:25 Troponin T 0.018 ng/mL (0.00-0.029) 10/29/20 04:25 C-Reactive Protein 10.10 mg/dL (0.00-1.30) H 10/30/20 01:19 NT-Pro-B Natriuret Pep 231.7 pg/mL (0-900) 10/29/20 04:25 Total Protein 5.0 g/dL (6.3-8.2) L 11/02/20 07:10 Albumin 2.2 g/dL (3.9-5) L 11/02/20 07:10 Albumin/Globulin Ratio 0.8 % 11/02/20 07:10 Procalcitonin 0.72 ng/mL (<0.15) 10/30/20 01:19 TSH 2.290 mlU/mL (0.270-4.200) 10/29/20 04:25 Arterial Blood Glucose 179 mg/dL (65-95) H 10/30/20 00:24 Arterial Blood Ionized Calcium 4.3 mg/dL (4.6-5.3) L 10/30/20 00:24 Urine Color Yellow (Yellow) 10/29/20 14:53 Urine Turbidity Clear (Clear) 10/29/20 14:53 Urine pH 5.0 (5.0-7.0) 10/29/20 14:53 Ur Specific Elizabeth 1.019 (1.003-1.030) 10/29/20 14:53 Urine Protein <15 mg/dl mg/dL (Negative) 10/29/20 14:53 Urine Glucose (UA) 150 mg/dL (Negative) 10/29/20 14:53 Urine Ketones Neg mg/dL (Negative) 10/29/20 14:53 Urine Blood Neg (Negative) 10/29/20 14:53 Urine Nitrite Neg (Negative) 10/29/20 14:53 Urine Bilirubin Neg (Negative) 10/29/20 14:53 Urine Urobilinogen < 2.0 mg/dL (<2.0) 10/29/20 14:53 Ur Leukocyte Esterase Neg (Negative) 10/29/20 14:53 Urine WBC (Auto) 1.0 /HPF (0.0-6.0) 10/29/20 14:53 Urine RBC (Auto) 1.0 /HPF (0.0-6.0) 10/29/20 14:53 Hyaline Casts 1 /LPF 10/29/20 14:53 Salicylates < 0.3 mg/dL (2.8-20.0) L 10/29/20 04:25 Acetaminophen < 5.0 ug/mL (10.0-30.0) L 10/29/20 04:25 Plasma/Serum Alcohol < 0.01 % (0-0.07) 10/29/20 04:25 Coronavirus (PCR) Negative (Negative) 10/29/20 Unknown Mcelroy/IV: Voiding Method Incontinent Active Medications - Current Medications Current Medications: Generic Name Dose Route Start Last Admin Trade Name Freq PRN Reason Stop Dose Admin Acetaminophen 650 mg 10/29/20 13:00 11/05/20 03:48 Acetaminophen 325 Mg Tab PO 650 mg Q4H PRN Administration Pain MILD(1-3)/Fever >100.5/HOFFMAN Albuterol 2.5 mg 11/02/20 08:43 Albuterol 2.5 Mg/3 Ml Nebu IH Q4HRT PRN Shortness Of Breath Albuterol/Ipratropium 1 ampul 11/02/20 14:00 11/05/20 08:12 Ipratropium/Albuterol Sulfate 3 Ml Ampul.Neb IH 1 ampul Q6HRT AGUEDA Administration Arformoterol Tartrate 15 mcg 11/02/20 20:00 11/05/20 08:12 Arformoterol 15 Mcg/2 Ml Nebu IH 15 mcg Q12HRT AGUEDA Administration Budesonide 0.5 mg 11/02/20 20:00 11/05/20 08:12 Budesonide 0.5 Mg/2 Ml Nebu IH 0.5 mg Q12HRT AGUEDA Administration Diltiazem HCl 30 mg 10/31/20 12:00 11/05/20 06:39 Diltiazem 30 Mg Tab PO 30 mg Q6HR AGUEDA Administration Enoxaparin Sodium 40 mg 10/30/20 00:30 11/04/20 22:54 Enoxaparin 40 Mg/0.4 Ml Inj SUB-Q 40 mg QDAY@2200 [facility] Administration Protocol Guaifenesin 10 ml 11/02/20 03:56 11/02/20 21:57 Guaifenesin Dm 200/20 Mg Oral Liqd 10 Ml PO 10 ml Q6H PRN Administration Cough Hydrophilic Ointment 1 applic 11/04/20 14:00 Lip Therapy Vaseline TP DIRECT PRN Dry Lips Levofloxacin/Dextrose 750 mg in 150 mls @ 100 mls/hr 11/03/20 08:00 11/04/20 12:04 Levaquin 750mg/150ml IV 11/07/20 11:59 Infused Q24HR [facility] Infusion Protocol Magnesium Sulfate 3 gm/ Sodium 106 mls @ 35.333 mls/hr 11/05/20 12:00 Chloride IV 11/05/20 14:59 ONCE ONE Magnesium Sulfate 2 gm in 50 mls @ 25 mls/hr 11/05/20 09:00 Magnesium Sulfate 2gm/50ml IV 11/05/20 10:59 ONCE ONE Insulin Human Isoph/Insulin Regular 12 unit 11/05/20 17:00 Insulin Nph/Regular 70/30 Inj SUB-Q BIDDIAB [facility] Insulin Human Lispro 0 unit 10/30/20 22:00 11/04/20 23:37 Insulin Lispro 100 Unit/Ml SUB-Q 5 unit ACHS [facility] Administration Protocol Lorazepam 1 mg 10/29/20 12:37 11/05/20 04:00 Lorazepam 2 Mg/Ml Vial IV 1 mg Q4H PRN Administration Agitation Methylprednisolone Sodium Succinate 20 mg 11/05/20 08:00 Methylprednisolone Sod Succinate 40 Mg/1 Ml Inj IV Q8H [facility] Metoprolol Succinate 50 mg 10/29/20 22:00 11/04/20 09:35 Metoprolol Succinate Xl 50 Mg Tab PO 50 mg QDAY [facility] Administration Ondansetron HCl 4 mg 10/29/20 14:00 Ondansetron 4 Mg/2 Ml Inj IV Q8H PRN Nausea And Vomiting Sodium Chloride 10 ml 10/29/20 22:00 11/04/20 22:55 Sodium Chloride 0.9% 10 Ml Flush Syringe IV 10 ml BID AGUEDA Administration Sodium Chloride 10 ml 10/29/20 13:00 10/29/20 23:41 Sodium Chloride 0.9% 10 Ml Flush Syringe IV 10 ml PRN PRN Administration LINE FLUSH Nutrition/Malnutrition Assess - Dietary Evaluation Nutrition/Malnutrition Findings: Nutrition Notes Start: 11/04/20 11:52 Freq: Status: Active Protocol: Document 11/04/20 11:52 CW (Rec: 11/04/20 12:01 CW [id number]) Nutrition Notes Need for Assessment generated from: support technician Initial or Follow up Assessment Current Diagnosis Hypertension Other Pertinent Diagnosis dementia, AMS, GERD, SOB Current Diet Pureed Cardiac Labs/Tests 11/02 K 3.1 BG 168 Pertinent Medications Solumedrol Levoquin in D Pulmicort Height 5 ft 2 in Weight 68.5 kg [place] Body Weight (kg) 50.00 BMI 27.6 Weight Status Appropriate Subjective/Other Information RN screen for MST. Pt with dementia and AMS unable to provide nutritional hx. PO intake varies. Pt already has order for ONS. PO intake <25% of meals. ST recommend NPO yesterday afternoon d/t failed swallow test. Diet not cancelled. Per RN pt not consuming more than a few bites of meal. Burn Absent Trauma Absent Difficulty In Swallowing,Chewing Current % PO Fair (50-74%) #1 Nutrition Diagnosis Inadequate oral intake Etiology AMS As Evidenced by Signs and Symptoms pt consuming approximately 50% of meals Is patient on ventilator? No Is Patient Ambulatory and/or Out of Bed No REE-([facility]-confined to bed) 8722.953 Calculation Used for Recommendations [facility] Additional Notes protein needs: (1 - 1.2 g/kgBW ) fluid needs: 1 ml/kcal or per MD order Nutrition Intervention Change Diet Order: Diet per BUILDING MANAGER recomendation Add Supplement/Snack (indicate name/kcal Glucerna BID /protein ) Provides kCal: 440 Provides Protein (gm) 20 Goal #1 Meet at least 75% of kcal and protein needs via PO Anticipated Discharge Needs: unable to determine at this time Follow-Up By: 11/06/20 Additional Comments F/U intakes and diet clearance from BUILDING MANAGER
[2020-11-05] MEDS ORDERED: MAGNESIUM SULFATE 2 GM/50 ML BAG IV ONE ×2 (09:00)
--- NOTE | 2020-11-05 09:36 | Progress Note ---
Assessment and Plan Hx of paroxysmal atrial fibrillation on Pradaxa as an outpatient for oral AC. currently, she is stable sinus rhythm; on Toprol XL for suppression. Respiratory failure Htn DM II Vascular dementia Continue medical therapy for paroxysmal atrial fibrillation. Otherwise, conservative cardiac management. Subjective Date of service: 11/05/20 Principal diagnosis: A. fib with RVR Interval history: No cardiac events. Awaits placement. Objective Vital Signs Temp Pulse Pulse Pulse Resp Resp BP 11/05/20 08:14 11/05/20 06:39 97 H 11/05/20 05:15 98.0 F 114 H 26 H 113/48 11/05/20 02:00 99 H 20 11/04/20 23:54 129 H 11/04/20 22:45 99.3 F 126 H 26 H 125/59 11/04/20 20:14 11/04/20 20:00 116 H 18 11/04/20 17:17 129 H 11/04/20 17:04 98.7 F 129 H 16 11/04/20 16:30 11/04/20 14:30 102 H 96 H 18 11/04/20 12:15 111 H 132/80 11/04/20 12:05 97.3 F L 123 H 17 11/04/20 10:01 11/04/20 09:35 111 H 132/80 BP Pulse Ox 11/05/20 08:14 99 11/05/20 06:39 11/05/20 05:15 99 11/05/20 02:00 11/04/20 23:54 11/04/20 22:45 95 11/04/20 20:14 98 11/04/20 20:00 11/04/20 17:17 11/04/20 17:04 108/74 94 11/04/20 16:30 96 11/04/20 14:30 11/04/20 12:15 11/04/20 12:05 110/58 100 11/04/20 10:01 97 11/04/20 09:35 - Physical Examination General: Other (Confused, bilateral wrist restraints) HEENT: Positive: PERRL Neck: Positive: neck supple Cardiac: Positive: Reg Rate and Rhythm - Labs and Meds Comprehensive Metabolic Panel 11/05/20 Range/Units 04:40 Sodium 141 (137-145) mmol/L Potassium 3.1 L (3.6-5.0) mmol/L Chloride 96.7 L (98-107) mmol/L Carbon Dioxide 31 H (22-30) mmol/L BUN 18 H (7-17) mg/dL Creatinine 0.7 D (0.6-1.2) mg/dL Glucose 386 H (65-100) mg/dL Calcium 8.3 L (8.4-10.2) mg/dL
[2020-11-05] MEDS: POTASSIUM CHLORIDE ER 20 MEQ TAB PO SCH ×2 (10:40→12:16)
[2020-11-05] MEDS: INSULIN NPH/REGULAR 70/30 INJ SUB-Q SCH ×2 (10:41→17:22)
[2020-11-05] MEDS: methylPREDNISolone Sod Succinate 40 MG/1 ML INJ IV SCH ×3 (10:41→17:27)
[2020-11-05] MEDS: INSULIN LISPRO 100 UNIT/ML SUB-Q SCH ×4 (10:42→23:21)
[2020-11-05] MEDS: METOPROLOL SUCCINATE XL 50 MG TAB PO SCH (10:42)
[2020-11-05] MEDS ORDERED: MAGNESIUM SULFATE 3 GM in SODIUM CHLORIDE 0.9% 100 ML IV ONE (12:00)
[2020-11-05] MEDS: HALOPERIDOL LACTATE 5 MG/1 ML INJ IM PRN ×2 (17:22→22:44)
[2020-11-05] MEDS: ENOXAPARIN 40 MG/0.4 ML INJ SUB-Q SCH (22:44)
[2020-11-06] MEDS: dilTIAZem 30 MG TAB PO SCH ×3 (01:01→11:22)
[2020-11-06] MEDS: methylPREDNISolone Sod Succinate 40 MG/1 ML INJ IV SCH ×3 (01:02→08:51)
[2020-11-06] MEDS: IPRATROPIUM/ALBUTEROL SULFATE 3 ML AMPUL.NEB IH SCH ×3 (01:52→13:13)
[2020-11-06 05:48] VITALS: BP 129/74
[2020-11-06] MEDS: ARFORMOTEROL 15 MCG/2 ML NEBU IH SCH (07:33)
[2020-11-06] MEDS: BUDESONIDE 0.5 MG/2 ML NEBU IH SCH (07:33)
[2020-11-06] MEDS: INSULIN LISPRO 100 UNIT/ML SUB-Q SCH ×2 (08:11→11:21)
[2020-11-06] MEDS: INSULIN NPH/REGULAR 70/30 INJ SUB-Q SCH (08:11)
--- NOTE | 2020-11-06 09:01 | Progress Note ---
Assessment and Plan Hx of paroxysmal atrial fibrillation on Pradaxa as an outpatient for oral AC. currently, she is stable sinus rhythm; on Toprol XL for suppression. Respiratory failure Htn DM II Vascular dementia Continue medical therapy for paroxysmal atrial fibrillation. Otherwise, conservative cardiac management. Subjective Date of service: 11/06/20 Principal diagnosis: A. fib with RVR Interval history: No cardiac events. On Bipap with bilateral wrist restraints in place. Objective Vital Signs Temp Pulse Pulse Pulse Resp Resp Resp 11/06/20 05:48 74 11/06/20 01:55 110 H 28 H 11/06/20 01:53 110 H 107 H 22 20 11/06/20 01:01 107 H 11/05/20 20:23 103 H 99 H 24 22 11/05/20 20:22 11/05/20 16:41 97.6 F 66 24 11/05/20 12:01 97.2 F L 109 H 24 BP Pulse Ox 11/06/20 05:48 129/74 11/06/20 01:55 100 11/06/20 01:53 11/06/20 01:01 116/96 11/05/20 20:23 11/05/20 20:22 97 11/05/20 16:41 109/46 80 L 11/05/20 12:01 103/64 99 - Physical Examination General: Other (Confused, bilateral wrist restraints) Neck: Positive: neck supple Cardiac: Positive: Reg Rate and Rhythm Lungs: Positive: Decreased Breath Sounds Extremities: Absent: edema
[2020-11-06] MEDS: METOPROLOL SUCCINATE XL 50 MG TAB PO SCH (11:23)
--- NOTE | 2020-11-06 11:31 | Discharge Summary ---
Providers - Providers Date of Admission: 10/30/20 11:07 Date of discharge: 11/06/20 Attending physician: RUSSELL MORALES 10/29/20 04:03 Consult to Case Management [CONS] Stat Services Needed at Discharge: Director Social Welfare Physical Therapy Notified:: awaiting call back 10/30/20 03:07 Consult to Wound/ET Nurse [CONS] Routine Reason For Exam: wound eval 10/30/20 09:39 Consult to Physician [CONS] Routine Comment: Consulting Provider: RADHA GLEASON Physician Instructions: Reason For Exam: A. fib with rapid ventricular rate 10/31/20 11:03 Speech Therapy Evaluation and Treat [CONS] Stat Reason For Exam: pt. not eating 11/02/20 11:14 Physical Therapy Evaluation and Treat [CONS] Routine Comment: Debility Reason For Exam: Eval & Treat Primary care physician: CASE MAKER Hospitalization Reason for admission: Acute toxic metabolic encephalopathy Condition: Good Pertinent studies: CTA chest; no acute abnormality, no PE CT abdomen and pelvis; no acute abnormality X-ray left elbow; alignment is normal no joint effusion or acute fracture CT head without contrast; no intracranial sequelae from trauma no acute focal parenchymal lesion Echo; LVEF 45 to 50%, borderline concentric left ventricular hypertrophy Hospital course: 70-year-old female patient with significant past medical history of behavioral disturbances, coronary atherosclerosis, COPD, dementia paroxysmal atrial fibrillation on chronic anticoagulation breast cancer, GERD and hypertension was admitted through emergency room with altered level of consciousness, toxic metabolic encephalopathy with multiple medical problems. Patient was admitted managed appropriately, evaluated by sail finisher hand, medications optimized. Patient has vascular dementia and is bedbound, has numerous small superficial wounds at different stages as seen by wound care documentation. Patient symptoms slowly but gradually improved Case management and family have decided to discharge to hospice house inpatient, on the day of discharge patient was comfortable no new complaints vital signs s table physical examination prior to discharge did not show any new changes Patient is hemodynamically and clinically stable at discharge Discharge diagnosis: --Acute toxic metabolic encephalopathy Current Visit: Yes Status: Acute Multifactorial , dementia .metabolic acidosis .A. fib Treat the underlying cause, supportive care --Severe hypomagnesemia; Current Visit: Yes Status: Acute Replenished resolved --Hypokalemia/hypophosphatemia; Current Visit: Yes Status: Acute Replenished with KCl --Atrial fibrillation with rapid ventricular rate Current Visit: Yes Status: Acute Patient now in sinus tachycardia -- COPD exacerbation Current Visit: Yes Status: Acute Patient on duo nebs and IV Solu-Medrol --History of fall; Current Visit: Yes Status: Acute. Fall precautions, physical therapy occupational therapy. --Hyperglycemia/type 2 diabetes mellitus Current Visit: Yes Status: Acute Accu-Chek sliding scale coverage ADA diet Long-acting insulin as needed, check A1c --Metabolic acidosis Current Visit: Yes Status: Acute BMP, IV fluid resuscitation therapy, repeat BMP in a.m. --Vascular dementia with behavioral disturbance Current Visit: Yes Status: Acute Verbal prompting, verbal redirection, benzodiazepine therapy as clinically indicated. -- Hypertension Current Visit: Yes Status: Acute Monitor blood pressure every shift, continue medical management --GERD (gastroesophageal reflux disease) Current Visit: Yes Status: Acute PPI therapy, supportive care. --Multiple chronic , small decubiti and wounds of different stages Current Visit: Yes Status: Acute Wound and supportive care . Patient symptoms significantly improved Case management and family decided to transfer the patient to Inpatient hospice facility Stable at discharge Disposition: 51 HOSPICE/MEDICAL FACILITY Final Discharge Diagnosis (Prints w/discharge instructions): Acute toxic metabolic encephalopathy. Chronic atrial fibrillation. COPD exacerbation. History of recurrent falls. Vascular dementia/behavioral disturbances. Hypertension. Multiple small decubiti. GERD. Metabolic acidosis. Hypomagnesemia. Hypokalemia Time spent for discharge: 35 min Core Measure Documentation - Palliative Care Palliative Care/ Comfort Measures: Not Applicable - Core Measures Any of the following diagnoses?: none Exam - Constitutional Vitals: Temp Pulse Resp BP Pulse Ox 97.6 F 74 28 H 129/74 100 11/05/20 16:41 11/06/20 11:23 11/06/20 01:55 11/06/20 11:23 11/06/20 01:55 General appearance: Present: mild distress, other (Confused and agitated) - EENT Eyes: Present: PERRL, EOM intact - Neck Neck: Present: supple - Respiratory Respiratory effort: normal Respiratory: bilateral: diminished, negative: rales, rhonchi, wheezing - Cardiovascular Rhythm: regular Heart Sounds: Present: S1 & S2 - Extremities Extremities: no ischemia, No edema - Abdominal General gastrointestinal: Present: soft, non-tender, non-distended, normal bowel sounds - Integumentary Integumentary: Present: clear, warm - Musculoskeletal Musculoskeletal: other (Noncommunicative) - Psychiatric Psychiatric: agitated, other (Confused) - Neurologic Neurologic: moves all extremities Plan Activity: advance as tolerated, fall precautions Diet: advance as tolerated, other (Cardiac diet/soft advance as tolerated) Additional Instructions: Management as per hospice director medical Follow up with: PRIMARY MD AGNES [Primary Care Provider] - 3-5 Days RADHA GLEASON MD [Staff Physician] - 14 Days
--- NOTE | 2020-11-06 16:59 | Event Note ---
Date: 11/05/20 I called [place] physician Dr. Harvey at [phone] and discussed about patient Ms. Joey Gupta's current status, treatment and discharge planning Also the tests and reports, case management and family discussions and that family is considering hospice .I addressed her questions and concerns
--- NOTE | 2020-11-06 17:03 | Event Note ---
Date: 11/06/20 I called [place] physician Dr. puente at [phone] and informed her that patient Ms. Joey Gupta was discharged to [facility] facility .
== END 2020-11-06 17:00 | disposition hospice, inpatient (51) | DRG 91 ==
LOC: ED 03:54 → 3A 12:26 → OBSVTOIN 10-30 11:07 → 3A 10-30 16:25
PROVIDERS: ADMIT Internal Medicine; ATTEND Internal Medicine
PROC: 4A033R1 Measurement of Arterial Saturation, Peripheral, Percutaneous Approach (ICD-10-PCS; principal; 2020-10-30)
PROC: 5A09457 Assistance with Respiratory Ventilation, 24-96 Consecutive Hours, Continuous Positive Airway Pressure (ICD-10-PCS; 2020-10-30)
PROC: 5A09357 Assistance with Respiratory Ventilation, Less than 24 Consecutive Hours, Continuous Positive Airway Pressure (ICD-10-PCS; 2020-11-06)
DX: G92 Toxic encephalopathy (principal); J96.90 Respiratory failure, unspecified, unspecified whether with hypoxia or hypercapnia; F01.51 Vascular dementia, unspecified severity, with behavioral disturbance; E87.2 Acidosis; J44.1 Chronic obstructive pulmonary disease with (acute) exacerbation; M62.82 Rhabdomyolysis; I67.2 Cerebral atherosclerosis; E11.65 Type 2 diabetes mellitus with hyperglycemia; K21.9 Gastro-esophageal reflux disease without esophagitis; L89.90 Pressure ulcer of unspecified site, unspecified stage; E87.6 Hypokalemia; E83.42 Hypomagnesemia; I11.0 Hypertensive heart disease with heart failure; I50.9 Heart failure, unspecified; E83.39 Other disorders of phosphorus metabolism; Z20.822 Contact with and (suspected) exposure to COVID-19; I48.0 Paroxysmal atrial fibrillation; R00.0 Tachycardia, unspecified; Z82.49 Family history of ischemic heart disease and other diseases of the circulatory system; Z83.3 Family history of diabetes mellitus; Z79.899 Other long term (current) drug therapy; Z79.4 Long term (current) use of insulin
CPT/HCPCS: 36415; 36600; 70450; 71045; 71275; 74018; 74177; 80048; 80053; 80320; 81001; 82140; 82550; 82728; 82803; 82805; 82947; 82962; 83036; 83520; 83615; 83735; 83880; 84100; 84145; 84443; 84484; 85025; 85379; 86140; 90715; 93005; 93306; 94640; 94660; G0378; G0480; J1630; J1650; J1815; J1940; J1956; J2060; J2250; J2920; J2930; J3475; J3486; J7030; J7040; Q9967; U0003